=== PATIENT | male | born 1945 | race Caucasian/White ===

== ENCOUNTER 2016-08-14 05:46 | Emergency (ER) | payer OTHER, MEDICARE ==
[2016-08-14 05:56] VITALS: BP 153/114
--- NOTE | 2016-08-14 06:21 | EDM.PDOC ---
ED HPI GENERAL MEDICAL PROBLEM - General Chief Complaint: ENT Problem Stated Complaint: NOSE BLEED Time Seen by Provider: 08/14/16 05:58 Source of Information: Reports: Patient History Limitations: Reports: No Limitations - History of Present Illness INITIAL COMMENTS - FREE TEXT/NARRATIVE: This is a 71-year-old male. Onset of right nasal passage bleed approximately 5:30 AM. It has not stopped bleeding and he comes to the ER for evaluation. The patient does take Coumadin for history of atrial fibrillation. He denies any other acute symptoms. He has had a nosebleed some years ago but nothing recent. He denies any recent illnesses no colds no cough no fever no chills. He has been holding pressure on his nose but it is failed to stop the nasal bleed. - Related Data Allergies Allergy/AdvReac Type Severity Reaction Status Date / Time Penicillins Allergy Fever Verified 08/14/16 05:56 Home Meds: Home Meds Aspirin 81 mg PO DAILY 12/03/15 [History] Digoxin 0.25 mg PO DAILY 12/03/15 [History] Metoprolol Tartrate [Lopressor] 100 mg PO BID 12/03/15 [History] Warfarin [Coumadin] 5 mg PO DAILY 12/03/15 [History] Albuterol [Proair HFA] 1 puff INH Q4HR PRN 12/10/15 [History] Tiotropium [Spiriva Handihaler] 1 puff INH BID 12/10/15 [History] Past Medical History HEENT History: Reports: Epistaxis Cardiovascular History: Reports: Afib, Hypertension Respiratory History: Reports: Asthma, COPD Musculoskeletal History: Reports: Other (See Below) Other Musculoskeletal History: leg cramps - Past Surgical History HEENT Surgical History: Reports: Eye Surgery Social & Family History - Tobacco Use Smoking Status *Q: Never Smoker Second Hand Smoke Exposure: No - Caffeine Use Caffeine Use: Reports: None - Recreational Drug Use Recreational Drug Use: No ED ROS ENT - Review of Systems Review Of Systems: See Below Constitutional: Denies: Fever, Chills HEENT: Reports: Other (As per history of present illness) Respiratory: Reports: No Symptoms Cardiovascular: Reports: Other (History as history of present illness) Endocrine: Reports: No Symptoms GI/Abdominal: Reports: No Symptoms : Reports: No Symptoms Musculoskeletal: Reports: No Symptoms Skin: Reports: No Symptoms Neurological: Reports: No Symptoms Psychiatric: Reports: No Symptoms Hematologic/Lymphatic: Reports: Other (As per history of present illness) ED EXAM, ENT - Physical Exam Exam: See Below Exam Limited By: No Limitations General Appearance: Alert, WD/WN, No Apparent Distress Eye Exam: Bilateral Eye: Normal Inspection Ears: Normal External Exam Nose: Other (There is a mild active bleed in the right nasal passage, there is old blood in the left nasal passage) Mouth/Throat: Other (He has old blood on his tongue and his mouth but I do not see any posterior nasal bleeding) Head: Normocephalic Neck: Supple Respiratory/Chest: No Respiratory Distress, Lungs Clear, Normal Breath Sounds Cardiovascular: Regular Rate, Rhythm, No Murmur GI/Abdominal: Soft Back: Full Range of Motion Extremities: Normal Inspection, Normal Range of Motion Neurological: Alert, Oriented Psychiatric: Anxious Skin: Warm, Dry ED ENT PROCEDURES - Epistaxis Procedure Indication: Epistaxis Recent anticoagulants/antiplatlets: Yes Uncontrolled HTN: No Recent septal/nasal surgery: No Site of bleeding: Right Nare Topical Meds: Topical Cocaine Ice pack to area: No Anterior Packing: Other (Rhino Rocket with a posterior balloon was placed in the right Nare) Complications: No (Patient tolerated the procedure well) Course - Vital Signs Last Recorded V/S: Last Vital Signs Temp 97.6 F 08/14/16 05:52 Pulse 81 08/14/16 05:52 Resp 18 08/14/16 05:52 BP 153/114 H 08/14/16 05:52 Pulse Ox 90 L 08/14/16 05:52 - Orders/Labs/Meds Labs: Laboratory Tests 08/14/16 Range/Units 06:23 PT 22.2 H (8.0-13.0) SECONDS INR 1.95 Meds: Medications Discontinued Medications Generic Name Dose Route Start Last Admin Trade Name Freq PRN Reason Stop Dose Admin Cocaine HCl Confirm 08/14/16 06:04 Cocaine Hcl Administered 08/14/16 06:05 Dose 4 ml .ROUTE .STK-MED ONE Departure - Departure Time of Disposition: 06:57 Disposition: Home, Self-Care 01 Condition: Good Clinical Impression: Epistaxis, Subtherapeutic international normalized ratio (INR) - Discharge Information Forms: ED Department Discharge Additional Instructions: Continue with the Rhino Rocket, do not blow your nose to not sneeze through your nose, follow-up with your family doctor or the walk-in clinic or the ER for removal of the Rhino Rocket Tuesday morning, continue with your Coumadin, if there's complications with the Rhino Rocket with the beginning of or continued nasal bleeding return to the ER immediately, if the Rhino Rocket falls out and there is no nasal bleeding follow-up with your doctor on Tuesday
== END 2016-08-14 07:09 | disposition home or self-care (01) ==
LOC: JD.ED 05:46
DX: R04.0 Epistaxis (principal); R79.1 Abnormal coagulation profile; I48.91 Unspecified atrial fibrillation; I10 Essential (primary) hypertension; J45.909 Unspecified asthma, uncomplicated; Z88.0 Allergy status to penicillin; Z79.82 Long term (current) use of aspirin; Z79.01 Long term (current) use of anticoagulants; R06.02 Shortness of breath
CPT/HCPCS: 30903; 30905; 36415; 85610; 99282; 99282-25; 99283-25; 99284

== ENCOUNTER 2016-08-14 23:22 | Emergency (ER) | payer OTHER, MEDICARE ==
[2016-08-14 23:31] VITALS: BP 165/85
--- NOTE | 2016-08-15 00:10 | EDM.PDOC ---
ED HPI GENERAL MEDICAL PROBLEM - General Chief Complaint: Respiratory Problem Stated Complaint: SOB Time Seen by Provider: 08/14/16 23:31 Source of Information: Reports: Patient History Limitations: Reports: No Limitations - History of Present Illness INITIAL COMMENTS - FREE TEXT/NARRATIVE: This is a 71-year-old male. He was seen here yesterday evening for a nasal bleed that required a Rhino Rocket with posterior packing. He has had no further epistaxis with a packing but now he states he feels like he is short of breath. He can't seem to breathe through the left side of his nose and when he tried to sleep tonight the shortness of breath seemed to get worse. He comes back to the ER. He thinks the Rhino Rocket is causing his shortness of breath. He has no history of congestive heart failure even though he has a history of atrial fibrillation. He denies any fever or chills denies any other acute symptoms. - Related Data Allergies Allergy/AdvReac Type Severity Reaction Status Date / Time Penicillins Allergy Fever Verified 08/14/16 23:31 Home Meds: Home Meds Aspirin 81 mg PO DAILY 12/03/15 [History] Digoxin 0.25 mg PO DAILY 12/03/15 [History] Metoprolol Tartrate [Lopressor] 100 mg PO BID 12/03/15 [History] Warfarin [Coumadin] 5 mg PO DAILY 12/03/15 [History] Albuterol [Proair HFA] 1 puff INH Q4HR PRN 12/10/15 [History] Tiotropium [Spiriva Handihaler] 1 puff INH BID 12/10/15 [History] Past Medical History HEENT History: Reports: Epistaxis Cardiovascular History: Reports: Afib, Hypertension Respiratory History: Reports: Asthma, COPD Musculoskeletal History: Reports: Other (See Below) Other Musculoskeletal History: leg cramps - Past Surgical History HEENT Surgical History: Reports: Eye Surgery Social & Family History - Tobacco Use Smoking Status *Q: Never Smoker Second Hand Smoke Exposure: No - Caffeine Use Caffeine Use: Reports: None - Recreational Drug Use Recreational Drug Use: No ED ROS GENERAL - Review of Systems Review Of Systems: See Below Constitutional: Denies: Fever, Chills HEENT: Reports: Other (As per history of present illness) Respiratory: Reports: Shortness of Breath Cardiovascular: Denies: Chest Pain Endocrine: Reports: No Symptoms GI/Abdominal: Denies: Abdominal Pain, Diarrhea, Nausea, Vomiting : Reports: No Symptoms Musculoskeletal: Reports: No Symptoms Skin: Reports: No Symptoms Neurological: Reports: No Symptoms Psychiatric: Reports: No Symptoms Hematologic/Lymphatic: Reports: No Symptoms ED EXAM, GENERAL - Physical Exam Exam: See Below Exam Limited By: No Limitations General Appearance: Alert, WD/WN, No Apparent Distress, Other (Patient does not appear to be short of breath, pulse ox on room air is 93-94%) Eye Exam: Bilateral Eye: Normal Inspection Ears: Normal External Exam Nose: Other (Rhino Rocket is in good placement the balloons are still filled there is no bleeding) Throat/Mouth: Normal Inspection, Other (There is no balloon in the back of his throat that can be seen to suggest an obstruction from the Rhino Rocket) Head: Normocephalic Neck: Supple Respiratory/Chest: No Respiratory Distress, Lungs Clear, Normal Breath Sounds Cardiovascular: No Murmur, Irregularly Irregular GI/Abdominal: Soft Back Exam: Full Range of Motion Extremities: Normal Inspection, Normal Range of Motion Neurological: Alert, Oriented Psychiatric: Normal Affect, Normal Mood Skin Exam: Warm, Dry Course - Vital Signs Last Recorded V/S: Last Vital Signs Temp 97.8 F 08/14/16 23:26 Pulse 58 L 08/14/16 23:26 Resp 16 08/14/16 23:26 BP 165/85 H 08/14/16 23:26 Pulse Ox 93 L 08/14/16 23:26 - Re-Assessments/Exams Free Text/Narrative Re-Assessment/Exam: 08/15/16 00:10 I deflated the balloon to the Rhino Rocket with very gentle jiggling I was able to slowly remove the Rhino Rocket from the right nasal passage, there was no active bleeding after worse just some slight drainage noted 08/15/16 00:35 He is doing okay he still having a little bit of staining of the wash cloth from drainage from his right nasal area but there've been no bleeding and no posterior pharynx bleeding. I gave him the option of staying here for a little longer so we can observe him or if he wants to go home and he wants to go home. He does know that if he starts bleeding again he is to come back and get it repacked. He denies any shortness of breath now. Departure - Departure Time of Disposition: 00:36 Disposition: Home, Self-Care 01 Condition: Fair Clinical Impression: Encounter for removal of nasal packing, Shortness of breath, Epistaxis - Discharge Information Referrals: Sergio Gibbons MD [Primary Care Provider] - Forms: ED Department Discharge Additional Instructions: Gentle dabbing of the nose for the next 24 hours, do not blow your nose or sneeze through your nose, if you start having increased bleeding like you did before you need to return to the ER over the weekend for repeat nasal packing, otherwise follow-up with your family doctor this week for recheck
== END 2016-08-15 00:45 | disposition home or self-care (01) ==
LOC: JD.ED 23:22
DX: Z48.00 Encounter for change or removal of nonsurgical wound dressing (principal); R06.02 Shortness of breath; R04.0 Epistaxis; I48.91 Unspecified atrial fibrillation; I10 Essential (primary) hypertension; J45.909 Unspecified asthma, uncomplicated; J44.9 Chronic obstructive pulmonary disease, unspecified; Z88.0 Allergy status to penicillin; Z79.82 Long term (current) use of aspirin; Z79.01 Long term (current) use of anticoagulants
CPT/HCPCS: 99282; 99284

== ENCOUNTER 2017-01-29 06:02 | Emergency (ER) | payer MEDICARE, OTHER ==
[2017-01-29 06:11] VITALS: BP 172/81
--- NOTE | 2017-01-29 06:42 | EDM.PDOC ---
<Graeme Vázquez - Last Filed: 01/29/17 09:36> ED HPI GENERAL MEDICAL PROBLEM - General Chief Complaint: Respiratory Problem Stated Complaint: SOB Time Seen by Provider: 01/29/17 06:15 - Related Data Allergies Allergy/AdvReac Type Severity Reaction Status Date / Time Penicillins Allergy Fever Verified 01/29/17 06:07 Home Meds: Home Meds Aspirin 81 mg PO DAILY 12/03/15 [History] Digoxin 0.25 mg PO DAILY 12/03/15 [History] Metoprolol Tartrate [Lopressor] 100 mg PO BID 12/03/15 [History] Warfarin [Coumadin] 5 mg PO DAILY 12/03/15 [History] Albuterol [Proair HFA] 1 puff INH Q4HR PRN 12/10/15 [History] Tiotropium [Spiriva Handihaler] 1 puff INH BID 12/10/15 [History] Course - Vital Signs Last Recorded V/S: Last Vital Signs Temp 36.4 C 01/29/17 06:07 Pulse 73 01/29/17 06:07 Resp 26 H 01/29/17 06:07 BP 172/81 H 01/29/17 06:07 Pulse Ox 92 L 01/29/17 06:07 - Orders/Labs/Meds Orders: Active Orders 24 hr Category Date Time Status EKG Documentation Completion [RC] STAT Care 01/29/17 06:35 Active CULTURE BLOOD [BC] Stat Lab 01/29/17 07:05 Received CULTURE BLOOD [BC] Stat Lab 01/29/17 07:15 Received Blood Culture x2 Reflex Set [OM.PC] Stat Oth 01/29/17 06:35 Ordered Labs: Laboratory Tests 01/29/17 01/29/17 01/29/17 Range/Units 06:10 06:10 06:10 WBC 13.10 H (4.23-9.07) K/mm3 RBC 5.21 (4.63-6.08) M/mm3 Hgb 15.9 (13.7-17.5) gm/L Hct 48.2 (40.1-51.0) % MCV 92.5 H (79.0-92.2) fl MCH 30.5 (25.7-32.2) pg MCHC 33.0 (32.2-35.5) g/dl RDW Std Deviation 46.3 H (35.1-43.9) fL Plt Count 164 (163-337) K/mm3 MPV 12.3 (9.4-12.3) fl Neutrophils % (Manual) 77 H (40-60) % Band Neutrophils % 5 (0-10) % Lymphocytes % (Manual) 12 L (20-40) % Atypical Lymphs % 0 % Monocytes % (Manual) 6 (2-10) % Eosinophils % (Manual) 0 L (0.8-7.0) % Basophils % (Manual) 0 L (0.2-1.2) Platelet Estimate Adequate RBC Morph Comment Normal PT 25.4 H (8.0-13.0) SECONDS INR 2.21 APTT 44 H (22-36) SECONDS D-Dimer, Quantitative 0.46 (0.19-0.59) mg/L Puncture Site ABG pH (7.35-7.45) ABG pCO2 (35.0-45.0) mmHg ABG pO2 (80.0-100.0) mmHg ABG HCO3 (22.0-26.0) meq/L ABG O2 Saturation (96.0-97.0) % ABG Base Excess (-2-2.0) Radames Test A-a Gradient mmHg O2 Delivery Device FiO2 (21.00-100.00) % Sodium 134 L (136-145) mEq/L Potassium 4.5 (3.5-5.1) mEq/L Chloride 100 (98-107) mEq/L Carbon Dioxide 25 (21-32) mEq/L Anion Gap 13.5 (5-15) BUN 17 (7-18) mg/dL Creatinine 1.2 (0.7-1.3) mg/dL Est Cr Clr Drug Dosing 57.45 mL/min Estimated GFR (MDRD) 60 (>60) mL/min BUN/Creatinine Ratio 14.2 (14-18) Glucose 110 (83-115) mg/dL Lactic Acid (0.4-2.0) mmol/L Calcium 8.2 L (8.5-10.1) mg/dL Total Bilirubin 0.9 (0.2-1.0) mg/dL AST 28 (15-37) U/L ALT 26 (16-63) U/L Alkaline Phosphatase 104 (46-116) U/L Troponin I 0.018 (0.00-0.056) ng/mL NT-Pro-B Natriuret Pep 1208 H (0-125) pg/mL Total Protein 7.4 (6.4-8.2) g/dl Albumin 3.4 (3.4-5.0) g/dl Globulin 4.0 gm/dL Albumin/Globulin Ratio 0.9 L (1-2) Digoxin (0.9-2.0) ng/mL 01/29/17 01/29/17 01/29/17 Range/Units 06:10 06:45 07:05 WBC (4.23-9.07) K/mm3 RBC (4.63-6.08) M/mm3 Hgb (13.7-17.5) gm/L Hct (40.1-51.0) % MCV (79.0-92.2) fl MCH (25.7-32.2) pg MCHC (32.2-35.5) g/dl RDW Std Deviation (35.1-43.9) fL Plt Count (163-337) K/mm3 MPV (9.4-12.3) fl Neutrophils % (Manual) (40-60) % Band Neutrophils % (0-10) % Lymphocytes % (Manual) (20-40) % Atypical Lymphs % % Monocytes % (Manual) (2-10) % Eosinophils % (Manual) (0.8-7.0) % Basophils % (Manual) (0.2-1.2) Platelet Estimate RBC Morph Comment PT (8.0-13.0) SECONDS INR APTT (22-36) SECONDS D-Dimer, Quantitative (0.19-0.59) mg/L Puncture Site Rt radial ABG pH 7.39 (7.35-7.45) ABG pCO2 39.4 (35.0-45.0) mmHg ABG pO2 59.0 L (80.0-100.0) mmHg ABG HCO3 23.1 (22.0-26.0) meq/L ABG O2 Saturation 90.9 L (96.0-97.0) % ABG Base Excess -1.2 (-2-2.0) Radames Test Positive A-a Gradient 26 mmHg O2 Delivery Device Room air FiO2 21.00 (21.00-100.00) % Sodium (136-145) mEq/L Potassium (3.5-5.1) mEq/L Chloride (98-107) mEq/L Carbon Dioxide (21-32) mEq/L Anion Gap (5-15) BUN (7-18) mg/dL Creatinine (0.7-1.3) mg/dL Est Cr Clr Drug Dosing mL/min Estimated GFR (MDRD) (>60) mL/min BUN/Creatinine Ratio (14-18) Glucose (83-115) mg/dL Lactic Acid 1.2 (0.4-2.0) mmol/L Calcium (8.5-10.1) mg/dL Total Bilirubin (0.2-1.0) mg/dL AST (15-37) U/L ALT (16-63) U/L Alkaline Phosphatase (46-116) U/L Troponin I (0.00-0.056) ng/mL NT-Pro-B Natriuret Pep (0-125) pg/mL Total Protein (6.4-8.2) g/dl Albumin (3.4-5.0) g/dl Globulin gm/dL Albumin/Globulin Ratio (1-2) Digoxin 0.7 L (0.9-2.0) ng/mL Meds: Medications Discontinued Medications Generic Name Dose Route Start Last Admin Trade Name Margarita PRN Reason Stop Dose Admin Furosemide 40 mg 01/29/17 07:41 01/29/17 07:54 Lasix IVPUSH 01/29/17 07:42 40 mg NOW ONE Administration - Re-Assessments/Exams Free Text/Narrative Re-Assessment/Exam: 01/29/17 08:01 Repeat examination: Heart: Irregularly irregular no murmur lungs: Clear slightly diminished breath sounds no wheezes or rhonchi few basilar crackles. He has left 1-2+ pitting edema less so on the right. Chest x-ray reviewed he's got a hint of vascular congestion being pro BNP comes back at 1200 the patient does use Lasix at home however is not on his med list and he is not certain of the dose we will give him 40 mg IV at this time his potassium was 4.5 dig level pending. 01/29/17 09:36 Patient is doing better after the Lasix he's had a good diuretic response. With further discussion with the patient it sounds like he may have some problems gasping for air and getting good quality sleep he has a history of sleep apnea however hasn't been able to tolerate his machine it sounds like he is possibly on a BiPAP unit. I have encouraged him to work with this CPAP or BiPAP. Discuss the situation with his regular physician go see a sleep specialist if needed this will be beneficial to his heart failure atrial fibrillation hypertension and underlying lung disease as well as decrease his overall risk of stroke. Departure - Departure Time of Disposition: 09:40 Disposition: Home, Self-Care 01 Clinical Impression: Shortness of breath - Discharge Information Instructions: Shortness of Breath, [id number] Referrals: Sergio Gibbons MD [Primary Care Provider] - Forms: ED Department Discharge Additional Instructions: Return the emergency room with any questions problems worsening symptoms. For the next 3 days take Lasix 20 mg every morning starting tomorrow. Follow-up with your regular physician this next week. Discuss how things are going. Also discuss treatment for your sleep apnea and how to make this work. See a sleep specialist if you need to. With worsening fluid overload discuss if checking a heart ultrasound might be of benefit. - My Orders Last 24 Hours: My Active Orders 01/29/17 06:35 EKG Documentation Completion [RC] STAT Blood Culture x2 Reflex Set [OM.PC] Stat 01/29/17 07:05 CULTURE BLOOD [BC] Stat 01/29/17 07:15 CULTURE BLOOD [BC] Stat - Assessment/Plan Last 24 Hours: My Active Orders 01/29/17 06:35 EKG Documentation Completion [RC] STAT Blood Culture x2 Reflex Set [OM.PC] Stat 01/29/17 07:05 CULTURE BLOOD [BC] Stat 01/29/17 07:15 CULTURE BLOOD [BC] Stat <Guanako Devlin - Last Filed: 01/29/17 17:33> ED HPI GENERAL MEDICAL PROBLEM - General Source of Information: Reports: Patient, Family (), RN Notes Reviewed History Limitations: Reports: No Limitations - History of Present Illness INITIAL COMMENTS - FREE TEXT/NARRATIVE: The patient states that he developed both shortness of breath at rest and dyspnea with minimal exertion yesterday, 01/28/2017. He has had a dry cough. He states that he has been wheezing. He denies nasal or sinus congestion. No recent fever. No recent chest pain or palpitations. He states that he used his albuterol MDI 3-4 times yesterday, and that he took his Spiriva this morning. The patient has been diagnosed with COPD. He states that he had similar symptoms a few years ago, but does not recall the diagnosis. The patient states that he has chronic lower extremity edema, for which she takes a diuretic. He also has a history of chronic atrial fibrillation, for which she is on Coumadin. The patient's PCP is Dr. Gibbons. Past Medical History HEENT History: Reports: Epistaxis Cardiovascular History: Reports: Afib (chronic), Hypertension Respiratory History: Reports: COPD, Sleep Apnea Endocrine/Metabolic History: Reports: Obesity/BMI 30+ - Past Surgical History HEENT Surgical History: Reports: Cataract Surgery Social & Family History - Tobacco Use Smoking Status *Q: Former Smoker Years of Tobacco use: 53 Packs/Tins Daily: 1 Month Tobacco Last Used: Quit 2010 Second Hand Smoke Exposure: No - Caffeine Use Caffeine Use: Reports: Coffee - Alcohol Use Alcohol Use History: No - Recreational Drug Use Recreational Drug Use: No - Living Situation & Occupation Living situation: Reports: , with Spouse Occupation: Retired ED ROS GENERAL - Review of Systems Review Of Systems: See Below Constitutional: Reports: No Symptoms HEENT: Reports: No Symptoms Respiratory: Reports: No Symptoms Cardiovascular: Reports: No Symptoms Endocrine: Reports: No Symptoms GI/Abdominal: Reports: No Symptoms : Reports: No Symptoms Musculoskeletal: Reports: No Symptoms Skin: Reports: No Symptoms Neurological: Reports: No Symptoms Psychiatric: Reports: No Symptoms Hematologic/Lymphatic: Reports: No Symptoms Immunologic: Reports: No Symptoms ED EXAM, GENERAL - Physical Exam Exam: See Below Exam Limited By: No Limitations General Appearance: Alert, WD/WN, No Apparent Distress, Other (The patient was able to walk into the ED on his own, however, he needed to rest a moment to recover from dyspnea after minimal activity, such as sitting up.) Eye Exam: Bilateral Eye: Normal Inspection Ears: Normal External Exam, Normal Canal, Normal TMs, Hearing Loss Nose: Normal Inspection, Normal Mucosa, No Blood. No: Nasal Swelling Throat/Mouth: Normal Inspection, Normal Lips, Normal Teeth, Normal Gums, Normal Oropharynx, Normal Voice, No Airway Compromise Head: Atraumatic, Normocephalic Neck: Normal Inspection, Full Range of Motion. No: Lymphadenopathy (L), Lymphadenopathy (R) Respiratory/Chest: No Respiratory Distress, Lungs Clear, Normal Breath Sounds, No Accessory Muscle Use, Chest Non-Tender, Other (Good air movement). No: Decreased Breath Sounds, Crackles, Rhonchi, Wheezing, Prolonged Expiration Cardiovascular: Normal Peripheral Pulses, No Gallop, No JVD, No Murmur, No Rub, Irregularly Irregular Peripheral Pulses: 4+: Radial (L), Radial (R) GI/Abdominal: Normal Bowel Sounds, Soft, Non-Tender, No Organomegaly, No Distention, No Abnormal Bruit, No Mass, Other (Obese) (Male) Exam: Deferred Rectal (Males) Exam: Deferred Back Exam: Normal Inspection, Full Range of Motion, NT Extremities: Normal Inspection, Normal Range of Motion, Normal Capillary Refill , Other (1-2+ pitting pretibial edema, worse on the left than the right) Neurological: Alert, Oriented, Normal Cognition, No Motor/Sensory Deficits Psychiatric: Normal Affect Skin Exam: Warm, Dry, Intact, Normal Color, No Rash EKG INTERPRETATION EKG Date: 01/29/17 Time: 06:51 Rhythm: A-Fib Rate (Beats/Min): 86 [place]: Normal P-Wave: Absent QRS: Normal ST-T: Normal QT: Normal Comparison: NA - No Prior EKG Course - Orders/Labs/Meds Labs: Laboratory Tests 01/29/17 01/29/17 01/29/17 Range/Units 06:10 06:10 06:10 WBC 13.10 H (4.23-9.07) K/mm3 RBC 5.21 (4.63-6.08) M/mm3 Hgb 15.9 (13.7-17.5) gm/L Hct 48.2 (40.1-51.0) % MCV 92.5 H (79.0-92.2) fl MCH 30.5 (25.7-32.2) pg MCHC 33.0 (32.2-35.5) g/dl RDW Std Deviation 46.3 H (35.1-43.9) fL Plt Count 164 (163-337) K/mm3 MPV 12.3 (9.4-12.3) fl Neutrophils % (Manual) 77 H (40-60) % Band Neutrophils % 5 (0-10) % Lymphocytes % (Manual) 12 L (20-40) % Atypical Lymphs % 0 % Monocytes % (Manual) 6 (2-10) % Eosinophils % (Manual) 0 L (0.8-7.0) % Basophils % (Manual) 0 L (0.2-1.2) Platelet Estimate Adequate RBC Morph Comment Normal PT 25.4 H (8.0-13.0) SECONDS INR 2.21 APTT 44 H (22-36) SECONDS D-Dimer, Quantitative 0.46 (0.19-0.59) mg/L Puncture Site ABG pH (7.35-7.45) ABG pCO2 (35.0-45.0) mmHg ABG pO2 (80.0-100.0) mmHg ABG HCO3 (22.0-26.0) meq/L ABG O2 Saturation (96.0-97.0) % ABG Base Excess (-2-2.0) Radames Test A-a Gradient mmHg O2 Delivery Device FiO2 (21.00-100.00) % Sodium 134 L (136-145) mEq/L Potassium 4.5 (3.5-5.1) mEq/L Chloride 100 (98-107) mEq/L Carbon Dioxide 25 (21-32) mEq/L Anion Gap 13.5 (5-15) BUN 17 (7-18) mg/dL Creatinine 1.2 (0.7-1.3) mg/dL Est Cr Clr Drug Dosing 57.45 mL/min Estimated GFR (MDRD) 60 (>60) mL/min BUN/Creatinine Ratio 14.2 (14-18) Glucose 110 (83-115) mg/dL Lactic Acid (0.4-2.0) mmol/L Calcium 8.2 L (8.5-10.1) mg/dL Total Bilirubin 0.9 (0.2-1.0) mg/dL AST 28 (15-37) U/L ALT 26 (16-63) U/L Alkaline Phosphatase 104 (46-116) U/L Troponin I 0.018 (0.00-0.056) ng/mL NT-Pro-B Natriuret Pep 1208 H (0-125) pg/mL Total Protein 7.4 (6.4-8.2) g/dl Albumin 3.4 (3.4-5.0) g/dl Globulin 4.0 gm/dL Albumin/Globulin Ratio 0.9 L (1-2) Digoxin (0.9-2.0) ng/mL 01/29/17 01/29/17 01/29/17 Range/Units 06:10 06:45 07:05 WBC (4.23-9.07) K/mm3 RBC (4.63-6.08) M/mm3 Hgb (13.7-17.5) gm/L Hct (40.1-51.0) % MCV (79.0-92.2) fl MCH (25.7-32.2) pg MCHC (32.2-35.5) g/dl RDW Std Deviation (35.1-43.9) fL Plt Count (163-337) K/mm3 MPV (9.4-12.3) fl Neutrophils % (Manual) (40-60) % Band Neutrophils % (0-10) % Lymphocytes % (Manual) (20-40) % Atypical Lymphs % % Monocytes % (Manual) (2-10) % Eosinophils % (Manual) (0.8-7.0) % Basophils % (Manual) (0.2-1.2) Platelet Estimate RBC Morph Comment PT (8.0-13.0) SECONDS INR APTT (22-36) SECONDS D-Dimer, Quantitative (0.19-0.59) mg/L Puncture Site Rt radial ABG pH 7.39 (7.35-7.45) ABG pCO2 39.4 (35.0-45.0) mmHg ABG pO2 59.0 L (80.0-100.0) mmHg ABG HCO3 23.1 (22.0-26.0) meq/L ABG O2 Saturation 90.9 L (96.0-97.0) % ABG Base Excess -1.2 (-2-2.0) Radames Test Positive A-a Gradient 26 mmHg O2 Delivery Device Room air FiO2 21.00 (21.00-100.00) % Sodium (136-145) mEq/L Potassium (3.5-5.1) mEq/L Chloride (98-107) mEq/L Carbon Dioxide (21-32) mEq/L Anion Gap (5-15) BUN (7-18) mg/dL Creatinine (0.7-1.3) mg/dL Est Cr Clr Drug Dosing mL/min Estimated GFR (MDRD) (>60) mL/min BUN/Creatinine Ratio (14-18) Glucose (83-115) mg/dL Lactic Acid 1.2 (0.4-2.0) mmol/L Calcium (8.5-10.1) mg/dL Total Bilirubin (0.2-1.0) mg/dL AST (15-37) U/L ALT (16-63) U/L Alkaline Phosphatase (46-116) U/L Troponin I (0.00-0.056) ng/mL NT-Pro-B Natriuret Pep (0-125) pg/mL Total Protein (6.4-8.2) g/dl Albumin (3.4-5.0) g/dl Globulin gm/dL Albumin/Globulin Ratio (1-2) Digoxin 0.7 L (0.9-2.0) ng/mL Meds: Medications Discontinued Medications Generic Name Dose Route Start Last Admin Trade Name Tariqq PRN Reason Stop Dose Admin Furosemide 40 mg 01/29/17 07:41 01/29/17 07:54 Lasix IVPUSH 01/29/17 07:42 40 mg NOW ONE Administration - Re-Assessments/Exams Free Text/Narrative Re-Assessment/Exam: 01/29/17 07:[address] Vázquez, and care of the patient turned over to him at this time, for change of shift.
[2017-01-29] MEDS ORDERED: Furosemide 40 MG/4 ML VIAL IVPUSH ONE (07:41)
--- NOTE | 2017-01-29 16:07 | CR ---
Chest: Two views of the chest were obtained. Comparison: No prior chest x-ray. Heart is enlarged. Upper mediastinum is within normal limits. Mild pulmonary vascular congestion is seen. Lungs otherwise are clear. Bony structures show degenerative spurring within the spine with mild kyphosis. Impression: 1. Cardiomegaly with mild pulmonary vascular congestion. 2. Other incidental findings. Diagnostic code #3
== END 2017-01-29 09:55 | disposition home or self-care (01) ==
LOC: JD.ED 06:02
DX: R06.02 Shortness of breath (principal); I10 Essential (primary) hypertension; Z87.891 Personal history of nicotine dependence; Z88.0 Allergy status to penicillin; Z79.82 Long term (current) use of aspirin; Z79.01 Long term (current) use of anticoagulants; Z79.899 Other long term (current) drug therapy
CPT/HCPCS: 36415; 36600; 71020; 80053; 80162; 82803; 83605; 83880; 84484; 85025; 85379; 85610; 85730; 87040; 93005; 96374; 99285; J1940; 93010; 99284

== ENCOUNTER 2018-10-15 18:08 | Emergency (ER) | payer MEDICARE, BC ==
[2018-10-15 18:32] VITALS: BP 178/74
[2018-10-15] MEDS ORDERED: Oxymetazoline 0.05% Nasal Spray 30 ML Bottle NAS ONE (19:20)
--- NOTE | 2018-10-15 19:28 | EDM.PDOC ---
ED HPI GENERAL MEDICAL PROBLEM - General Chief Complaint: ENT Problem Stated Complaint: NOSE BLEED Time Seen by Provider: 10/15/18 19:19 Source of Information: Reports: Patient, Family (spouse) History Limitations: Reports: No Limitations - History of Present Illness INITIAL COMMENTS - FREE TEXT/NARRATIVE: 73-year-old male presents to the ED with a fairly active nose bleed since 1630 hrs. today. States he awoke from a nap with active bleeding from his right naris. No known nasal trauma. No recent allergy issues or cough or cold symptoms. Patient is on aspirin and Coumadin due to chronic atrial fibrillation. Last Coumadin check was a month ago due for tomorrow. No changes to his Coumadin dosage made in the last month. Blood was coming out the other or left side of his nares as well. Blood swallowed. With direct pressure he did get it stopped for a period of time but then he sneezed and started bleeding again. Onset: Today Onset Date: 10/15/18 Onset Time: 16:30 Duration: Hour(s): Location: Reports: Face (Right-sided nasal bleeding. Persistent for 2 hours) Quality: Reports: Other Severity: Moderate (Right-sided nasal hemorrhage) Improves with: Reports: Other (Improves transiently with firm compression.) Worsens with: Reports: Other Context: Reports: Other. 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 (see below) Other Treatments THERMITE BOMB LOADER: pressure to right nares - Related Data Allergies Allergy/AdvReac Type Severity Reaction Status Date / Time Penicillins Allergy Fever Verified 01/29/17 06:07 Home Meds: Home Meds Aspirin 81 mg PO DAILY 12/03/15 [History] Digoxin 0.25 mg PO DAILY 12/03/15 [History] Metoprolol Tartrate [Lopressor] 100 mg PO BID 12/03/15 [History] Warfarin [Coumadin] 5 mg PO SUMOTUTHFRSA 12/03/15 [History] Albuterol [Proair HFA] 1 puff INH Q4HR PRN 12/10/15 [History] Tiotropium [Spiriva Handihaler] 1 puff INH BID 12/10/15 [History] Fluticasone/Vilanterol [Breo Ellipta 100-25 MCG Inhalation Kit] 1 puff INH DAILY 10/15/18 [History] Spironolactone [Aldactone] 25 mg PO BID #20 tablet 10/15/18 [Rx] Warfarin Sodium [Coumadin] 7.5 mg PO WE 10/15/18 [History] Past Medical History HEENT History: Reports: Epistaxis Cardiovascular History: Reports: Afib (chronic), Hypertension Respiratory History: Reports: COPD, Sleep Apnea Musculoskeletal History: Reports: Other (See Below) Other Musculoskeletal History: leg cramps Endocrine/Metabolic History: Reports: Obesity/BMI 30+ - Past Surgical History HEENT Surgical History: Reports: Cataract Surgery Social & Family History - Caffeine Use Caffeine Use: Reports: Coffee - Living Situation & Occupation Living situation: Reports: , with Spouse Occupation: Retired ED ROS ENT - Review of Systems Review Of Systems: See Below Constitutional: Denies: Fever, Chills, Malaise, Weakness, Fatigue HEENT: Reports: Nosebleed (Right side since 1630 hrs. today.) Respiratory: Reports: Shortness of Breath (O2 sats only 91% here with respiratory of 24/m.) Cardiovascular: Reports: Blood Pressure Problem, Dyspnea on Exertion ( Occasionally.). Denies: Chest Pain, Claudication, Lightheadedness, Orthopnea ( Chronic hypertension on medication for this. Current blood pressure is [id number] [phone].) Endocrine: Reports: Fatigue GI/Abdominal: Reports: No Symptoms : Reports: Frequency Musculoskeletal: Reports: Joint Pain Skin: Reports: Bruising (uses easily as he is on Coumadin and aspirin daily. For atrial fibrillation.) Neurological: Reports: No Symptoms Psychiatric: Reports: No Symptoms Hematologic/Lymphatic: Reports: No Symptoms Immunologic: Reports: No Symptoms ED EXAM, ENT - Physical Exam Exam: See Below Exam Limited By: No Limitations General Appearance: Alert, WD/WN, Anxious, Moderate Distress, Other (Concerned about having a Rhino Rocket pack as he did last time which causes severe pain and discomfort and he refuses this procedure today.) Eye Exam: Bilateral Eye: Normal Inspection Nose: Active Bleeding, Other (There is some blood in the left naris but it is coming from the right side. Examination shows a seat of active blood vessels from the anterior nasal septum on the right side) Mouth/Throat: Normal Inspection, Normal Gums, Normal Lips, Other Head: Atraumatic, Normocephalic (Some blood in the posterior oropharynx.) Neck: Normal Inspection, Supple, Non-Tender, Full Range of Motion Respiratory/Chest: Respiratory Distress, Decreased Breath Sounds (Mild tachypnea at rest 24/m. Patient has COPD chronically. Sats are 91% on room air.) Cardiovascular: Irregularly Irregular (Patient has chronic active fibrillation controlled at this time 72/m). No: Normal Peripheral Pulses ( Decreased breath sounds to the lower 25% of lung montoya.), Regular Rate, Rhythm GI/Abdominal: Soft, Non-Tender, No Organomegaly (Mildly obese.), No Abnormal Bruit, No Mass, Pelvis Stable, Other Neurological: Alert, Oriented, CN II-XII Intact, Normal Cognition Course - Vital Signs Last Recorded V/S: Last Vital Signs Temp 36.8 C 10/15/18 18:28 Pulse 70 10/15/18 18:28 Resp 24 H 10/15/18 18:28 BP 178/74 H 10/15/18 18:28 Pulse Ox 91 L 10/15/18 18:28 - Orders/Labs/Meds Orders: Active Orders 24 hr Category Date Time Status INR,PT,PROTHROMBIN TIME [COAG] Stat Lab 10/15/18 19:51 Received Labs: Laboratory Tests 10/15/18 10/15/18 10/15/18 Range/Units 19:51 19:51 19:51 Hgb 15.8 (13.7-17.5) gm/L Hct 48.1 (40.1-51.0) % Magnesium 2.3 (1.8-2.4) mg/dl NT-Pro-B Natriuret Pep 939 H (0-125) pg/mL Meds: Medications Discontinued Medications Generic Name Dose Route Start Last Admin Trade Name Freq PRN Reason Stop Dose Admin Cocaine HCl 4 ml 10/15/18 19:19 10/15/18 19:32 Cocaine Hcl TOP 10/15/18 19:20 4 ml ONETIME ONE Administration Oxymetazoline HCl 15 ml 10/15/18 19:20 10/15/18 19:31 Nasal Decongestant [place] PAM 10/15/18 19:21 15 ml ONETIME ONE Administration - Radiology Interpretation Free Text/Narrative:: 73-year-old male presents the ED with an acute onset of right sided nosebleed at 1430 hrs. today. He got stopped once but then sneezed and it's been bleeding ever since. Blood has come out through the left naris intermittently as well and he has swallowed some blood. Patient is chronically anticoagulate with Coumadin and aspirin for atrial fibrillation. He has a history of COPD and is currently showing sats of 91% on room air with tachypnea at 24/m. He is moderately anxious as well. Initial examination I could not pinpoint the source of bleeding although appears to be coming from the right anterior nasal septum. OB to pack the naris with half inch tube gauze soaked in cocaine and Afrin to get the bleeding to stop and then hopefully be able to apply silver nitrate to blood vessels on the surface. - Re-Assessments/Exams Free Text/Narrative Re-Assessment/Exam: 10/15/18 19:44: Right naris is packed with 1/2 inch tube gauze soaked in Afrin and cocaine topical. Anterior pack performed. Will wait 20 minutes for this to work and then review. 10/15/18 20:14 pack was removed and no bleeding was evident on the pack. The area of bleeding on the anterior nasal septum was identified and cauterized with silver nitrate in 3 separate areas. Labs are still pending as to his current PT/INR. I will review him in about 10 minutes time. PT/INR is pending. 10/15/18 20:42 Labs reveal hemoglobin of 15.8 and hematocrit of 48.1. Magnesium was 2.3. BNP was 939. 10/15/18 20:42 PT came back at 22.1 with an INR of 2.12. Patient is short of breath and showing some orthopnea at bedtime. Elevated BNP at 939 He's reluctant to go back on Lasix as he tried this in the past and got terrible leg cramps. I will place him on Aldactone 25 mg twice a day and have him follow-up in the clinic in 7 days time for repeat labs and serum potassium values. Departure - Departure Time of Disposition: 20:44 Disposition: Home, Self-Care 01 Condition: Fair Clinical Impression: Anterior epistaxis, Epistaxis Congestive heart failure Qualifiers: Heart failure type: unspecified Heart failure chronicity: chronic Qualified Code(s): I50.9 - Heart failure, unspecified - Discharge Information *PRESCRIPTION DRUG MONITORING PROGRAM REVIEWED*: Not Applicable *COPY OF PRESCRIPTION DRUG MONITORING REPORT IN PATIENT VIVIAN: Not Applicable Prescriptions: Spironolactone [Aldactone] 25 mg PO BID #20 tablet Referrals: Sergio Gibbons MD [Primary Care Provider] - Forms: ED Department Discharge Additional Instructions: Evaluation in the emergency room today in regards to development of a significant persistent nosebleed from the right side since about 1630 hrs. today. Irritable got it under control prior to evaluation the emergency room. You're treated with initial pack with topical cocaine and Afrin to cause the blood vessels to constrict and stop the bleeding. I could identify 2 areas on the anterior nasal septum on the right side that had been bleeding and these were cauterized with silver nitrate. No further bleeding was evident on reevaluation. Lab tests reveal you're PT was 22.1 and INR was 2.1 which is slightly low but at this time I would not change the values. The BNP which is a measurement of how well the heart is functioning is elevated at 939 with normal being less than 125. Fluid is accumulating in her lungs likely chronically and this is the reason you're short of breath at nighttime when you're lying down which we call orthopnea. He therefore requires some form of diuretic therapy and is suggesting try a short course of Aldactone 25 mg with breakfast and supper daily for the next week and follow-up in the clinic in about 8 days time for repeat lab tests on kidney function and serum potassium values as the medication can raise these. Of course return to the ED if any further bleeding from the right nose occurs. Ideally try not to blow her nose or irritate the nose in any fashion are formed for the next 2-3 days. Suggest purchasing some Polysporin ointment and placing this ointment into each side of the nose coating the nasal septum at bedtime for the next week which will hopefully allow the tissue to heal and prevent further bleeding. - My Orders Last 24 Hours: My Active Orders 10/15/18 19:51 INR,PT,PROTHROMBIN TIME [COAG] Stat - Assessment/Plan Last 24 Hours: My Active Orders 10/15/18 19:51 INR,PT,PROTHROMBIN TIME [COAG] Stat
== END 2018-10-15 20:58 | disposition home or self-care (01) ==
LOC: JD.ED 18:08
DX: R04.0 Epistaxis (principal); I50.9 Heart failure, unspecified; I10 Essential (primary) hypertension; J44.9 Chronic obstructive pulmonary disease, unspecified; E66.9 Obesity, unspecified; Z68.34 Body mass index [BMI] 34.0-34.9, adult; Z88.0 Allergy status to penicillin; Z79.82 Long term (current) use of aspirin; Z79.01 Long term (current) use of anticoagulants; Z79.899 Other long term (current) drug therapy
CPT/HCPCS: 30901; 36415; 80162; 83735; 83880; 84132; 85014; 85018; 85610; 99283; A9270

== ENCOUNTER 2018-10-16 10:18 | Emergency (ER) | payer MEDICARE, BC ==
[2018-10-16 10:25] VITALS: BP 160/80
--- NOTE | 2018-10-16 10:36 | EDM.PDOC ---
ED HPI GENERAL MEDICAL PROBLEM - General Chief Complaint: ENT Problem Stated Complaint: NOSE BLEED Time Seen by Provider: 10/16/18 10:22 Source of Information: Reports: Patient, Family (spouse) History Limitations: Reports: No Limitations - History of Present Illness INITIAL COMMENTS - FREE TEXT/NARRATIVE: 73-year-old male returns to the ED this morning with bleeding from the right naris 1 hour. He was seen in ED late last night by me with a right-sided nosebleed as well. He had initial packing performed with Afrin and cocaine topical which did bring the bleeding under control. Areas of the anterior septum on the right side were cauterized with silver nitrate in 3 spots. He states he did fine overnight. But this morning he blew his nose hard in the bleeding started again. The patient is on Coumadin and his PT INR last night was 22.1 with an INR of 2.12. He did take his aspirin this morning. On did run slightly out the left side of the naris. The way he can control the bleeding is by squeezing the nose closed. 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 (see below) (Only his usual meds.) - Related Data Allergies Allergy/AdvReac Type Severity Reaction Status Date / Time Penicillins Allergy Fever Verified 01/29/17 06:07 Home Meds: Home Meds Aspirin 81 mg PO DAILY 12/03/15 [History] Digoxin 0.25 mg PO DAILY 12/03/15 [History] Metoprolol Tartrate [Lopressor] 100 mg PO BID 12/03/15 [History] Warfarin [Coumadin] 5 mg PO SUMOTUTHFRSA 12/03/15 [History] Albuterol [Proair HFA] 1 puff INH Q4HR PRN 12/10/15 [History] Tiotropium [Spiriva Handihaler] 1 puff INH BID 12/10/15 [History] Fluticasone/Vilanterol [Breo Ellipta 100-25 MCG Inhalation Kit] 1 puff INH DAILY 10/15/18 [History] Spironolactone [Aldactone] 25 mg PO BID #20 tablet 10/15/18 [Rx] Warfarin Sodium [Coumadin] 7.5 mg PO WE 10/15/18 [History] Bacitracin/Polymyxin B Sulfate [Polysporin Ointment] 15 gm TP DAILY #1 tube [Rx] Past Medical History HEENT History: Reports: Epistaxis Cardiovascular History: Reports: Afib, Hypertension Respiratory History: Reports: COPD, Sleep Apnea Musculoskeletal History: Reports: Other (See Below) Other Musculoskeletal History: leg cramps Endocrine/Metabolic History: Reports: Obesity/BMI 30+ - Past Surgical History HEENT Surgical History: Reports: Cataract Surgery Social & Family History - Caffeine Use Caffeine Use: Reports: Coffee - Living Situation & Occupation Living situation: Reports: , with Spouse Occupation: Retired ED ROS ENT - Review of Systems Review Of Systems: See Below Constitutional: Denies: Fever, Chills, Malaise, Weakness, Fatigue, Decreased Appetite, Weight Loss HEENT: Reports: Glasses, Nosebleed (Right side some until last night.) Respiratory: Reports: Shortness of Breath, Wheezing, Cough (Orthopnea the last few days. Nonproductive has known COPD.), Other Cardiovascular: Reports: Blood Pressure Problem, Dyspnea on Exertion. Denies: Chest Pain, Claudication, Edema, Lightheadedness, Orthopnea Endocrine: Reports: No Symptoms (Chronically) GI/Abdominal: Reports: No Symptoms : Reports: Frequency, Other (Nocturia 2 or 3) Musculoskeletal: Reports: Neck Pain, Back Pain, Joint Pain Skin: Reports: Bruising (Occasional neck pain) Neurological: Reports: No Symptoms ( bruises easily as he is on Coumadin and aspirin) Psychiatric: Reports: No Symptoms ED EXAM, ENT - Physical Exam Exam: See Below Exam Limited By: No Limitations General Appearance: Alert, WD/WN, No Apparent Distress, Other (Vital signs this morning reveal temperature 37.1 with a pulse of 70 respiratory of 16 sats of 94 % on room air. BP is 160/80) Eye Exam: Bilateral Eye: Normal Inspection Nose: Active Bleeding (No clots are present.). No: Dried Blood Mouth/Throat: Other (Slight blood coating the posterior oropharynx.) ED ENT PROCEDURES - Epistaxis Procedure Indication: Epistaxis Recent anticoagulants/antiplatlets: Yes Uncontrolled HTN: No Recent septal/nasal surgery: No Site of bleeding: Right Nare Clearing of clots: Patient Blew Nose Ice pack to area: No Chemical cautery: Silver Nitrate Topical Course - Vital Signs Last Recorded V/S: Last Vital Signs Temp 37.1 C 10/16/18 10:23 Pulse 70 10/16/18 10:23 Resp 16 10/16/18 10:23 BP 160/80 H 10/16/18 10:23 Pulse Ox 94 L 10/16/18 10:23 - Radiology Interpretation Free Text/Narrative:: 73-year-old male presents once again to the ED with a very active right-sided nosebleeds for the last hour. He was seen through the ED last night for similar occurrence with bleeding for over 3 hours before being seen in the ED. Initial bleeding was stopped with cocaine and topical Afrin packing. The area was then cauterized on the right anterior nasal septal silver nitrate but it was difficult to appreciate the exact source of bleeding since the bleeding and stop so well. He states he did fine overnight but his nose hard this morning and bleeding once again started as he disrupted the clock. On examination mild active bleeding from the right anterior nasal septum once again appreciated. This area was cauterized once again with silver nitrate. I will review him in 10 minutes or so. As I discussed PT and PT INR were done last night. - Re-Assessments/Exams Free Text/Narrative Re-Assessment/Exam: 10/16/18 11:12 evaluation in the emergency room today in regards to recurrence of right-sided nosebleed after blowing nose this morning. Examination reveals bleeding from similar area right anterior nasal septum that was identified last night and cauterized. Areas were cauterized again today as there was no evidence of silver nitrate on the tissues this morning. Bleeding appeared to come under control. Coated with bacitracin ointment prior to discharge. Suggest use of Polysporin ointment on a Q-tip applied to the nasal septum every night at bedtime for the next week. Return to the ED if further bleeding occurs. Departure - Departure Time of Disposition: 11:09 Disposition: Home, Self-Care 01 Condition: Fair Clinical Impression: Epistaxis, recurrent - Discharge Information *PRESCRIPTION DRUG MONITORING PROGRAM REVIEWED*: Not Applicable *COPY OF PRESCRIPTION DRUG MONITORING REPORT IN PATIENT VIVIAN: Not Applicable Prescriptions: Bacitracin/Polymyxin B Sulfate [Polysporin Ointment] 15 gm TP DAILY #1 tube Referrals: Sergio Gibbons MD [Primary Care Provider] - Forms: ED Department Discharge Additional Instructions: Evaluation the emergency room this morning due to recurrence of nosebleed from the right anterior nasal septum. Areas were once again cauterized with silver nitrite to stop the bleeding which proved to be successful. Bacitracin ointment was placed on the nasal septum this morning. Suggest use Polysporin ointment every day at bedtime for the next week coating the nasal septum with the aid of a Q-tip. Of course return to the ED if further bleeding occurs. Again try not to blow the nose or pick at the nose etc. for at least 48 hours.
== END 2018-10-16 11:22 | disposition home or self-care (01) ==
LOC: JD.ED 10:18
DX: R04.0 Epistaxis (principal); I48.91 Unspecified atrial fibrillation; I10 Essential (primary) hypertension; J44.9 Chronic obstructive pulmonary disease, unspecified; Z88.0 Allergy status to penicillin; Z79.82 Long term (current) use of aspirin; Z79.899 Other long term (current) drug therapy; Z79.01 Long term (current) use of anticoagulants
CPT/HCPCS: 30901; 30905; 99281; 99283-25

== ENCOUNTER 2018-10-20 09:35 | Emergency (ER) | payer MEDICARE, BC ==
[2018-10-20 09:44] VITALS: BP 155/62
--- NOTE | 2018-10-20 10:19 | EDM.PDOC ---
ED HPI GENERAL MEDICAL PROBLEM - General Chief Complaint: ENT Problem Stated Complaint: NOSE BLEED Time Seen by Provider: 10/20/18 10:00 Source of Information: Reports: Patient, Family History Limitations: Reports: No Limitations - History of Present Illness INITIAL COMMENTS - FREE TEXT/NARRATIVE: 73-year-old male presents to the ED with acute right-sided epistaxis. This is a recurrent problem over the last week he's been here twice last weekend for similar problem. States in between he has been fine until he blew his nose hard this morning. He was able to get the bleeding stopped prior to coming into the ED. Last PT/INR was done 2 days ago and INR was 1.5. His dosage of Coumadin is thus been increased. He is on aspirin as well. No other complaints. Onset: Today Onset Date: 10/20/18 Onset Time: 09:15 Duration: Minutes: Location: Reports: Face (Right epistaxis.) Quality: Reports: Other Severity: Mild Improves with: Reports: None Worsens with: Reports: None Context: Reports: Other. Denies: Activity, Exercise, Lifting, Sick Contact Associated Symptoms: Reports: No Other Symptoms (His nose aggressively this morning.) Treatments [employer]PA[employer]ER: Reports: Other (see below) (None.) - Related Data Allergies Allergy/AdvReac Type Severity Reaction Status Date / Time Penicillins Allergy Fever Verified 10/20/18 09:41 Home Meds: Home Meds Aspirin 81 mg PO DAILY 12/03/15 [History] Digoxin 0.25 mg PO DAILY 12/03/15 [History] Metoprolol Tartrate [Lopressor] 100 mg PO BID 12/03/15 [History] Warfarin [Coumadin] 5 mg PO SUMOTUTHFRSA 12/03/15 [History] Albuterol [Proair HFA] 1 puff INH Q4HR PRN 12/10/15 [History] Tiotropium [Spiriva Handihaler] 1 puff INH BID 12/10/15 [History] Fluticasone/Vilanterol [Breo Ellipta 100-25 MCG Inhalation Kit] 1 puff INH DAILY 10/15/18 [History] Spironolactone [Aldactone] 25 mg PO BID #20 tablet 10/15/18 [Rx] Warfarin Sodium [Coumadin] 7.5 mg PO WE 10/15/18 [History] Bacitracin/Polymyxin B Sulfate [Polysporin Ointment] 15 gm TP DAILY #1 tube [Rx] Past Medical History HEENT History: Reports: Epistaxis Cardiovascular History: Reports: Afib, Hypertension Respiratory History: Reports: COPD, Sleep Apnea Musculoskeletal History: Reports: Other (See Below) Other Musculoskeletal History: leg cramps Endocrine/Metabolic History: Reports: Obesity/BMI 30+ - Past Surgical History HEENT Surgical History: Reports: Cataract Surgery Social & Family History - Tobacco Use Smoking Status *Q: Former Smoker Used Tobacco, but Quit: No - Caffeine Use Caffeine Use: Reports: Soda - Recreational Drug Use Recreational Drug Use: No - Living Situation & Occupation Living situation: Reports: , with Spouse Occupation: Retired ED ROS ENT - Review of Systems Review Of Systems: See Below Constitutional: Reports: No Symptoms HEENT: Reports: Nosebleed (Right-sided epistaxis.) Respiratory: Reports: No Symptoms, Cough (Chronic cough.) Cardiovascular: Reports: No Symptoms ( Has COPD.) Endocrine: Reports: No Symptoms GI/Abdominal: Reports: No Symptoms : Reports: No Symptoms Musculoskeletal: Reports: No Symptoms Skin: Reports: Bruising Neurological: Reports: No Symptoms (Bruises easily as he is on Coumadin and aspirin.) Psychiatric: Reports: No Symptoms Hematologic/Lymphatic: Reports: No Symptoms Immunologic: Reports: No Symptoms ED EXAM, ENT - Physical Exam Exam: See Below Exam Limited By: No Limitations General Appearance: Alert, WD/WN, No Apparent Distress Eye Exam: Bilateral Eye: Normal Inspection Nose: Active Bleeding (Very minimal active bleeding from the superior aspect of the anterior nasal septum .) Head: Atraumatic, Normocephalic Neck: Normal Inspection, Supple, Non-Tender, Full Range of Motion. No: Carotid Bruit, Lymphadenopathy (L), Lymphadenopathy (R) Respiratory/Chest: No Respiratory Distress, Lungs Clear, Normal Breath Sounds, No Accessory Muscle Use Cardiovascular: Normal Peripheral Pulses, Regular Rate, Rhythm, No Edema, No Gallop, No Murmur, No Rub GI/Abdominal: Normal Bowel Sounds Extremities: Normal Inspection, Normal Range of Motion, Non-Tender Neurological: Alert, Oriented, CN II-XII Intact, Normal Cognition Psychiatric: Normal Affect, Normal Mood Skin: Warm, Dry, Intact, Normal Color, No Rash ED ENT PROCEDURES - Epistaxis Procedure Indication: Epistaxis Recent anticoagulants/antiplatlets: Yes Uncontrolled HTN: No Recent septal/nasal surgery: No Site of bleeding: Right Nare, Anterior Ice pack to area: No Chemical cautery: Silver Nitrate Topical Course - Vital Signs Last Recorded V/S: Last Vital Signs Temp 36.6 C 10/20/18 09:43 Pulse 84 10/20/18 09:43 Resp 14 10/20/18 09:43 BP 155/62 H 10/20/18 09:43 Pulse Ox 90 L 10/20/18 09:43 - Radiology Interpretation Free Text/Narrative:: 73-year-old male presents to the ED for the third time this week with right- sided epistaxis. States he blew his nose hard and started having a right-sided nosebleed this morning. Patient was seen twice last weekend with recurrent right -sided nosebleeds. Patient is on Coumadin and aspirin and last PT/INR was x-ray subtherapeutic at 1.5. Since has been increased over the last 2 days. Trauma to the nose. On inspection there is an area of bleeding from the superior aspect of the anterior nasal septum on the right side. This area was cauterized with silver nitrate 2. Bleeding had pretty well stopped at the time of my initial assessment. - Re-Assessments/Exams Free Text/Narrative Re-Assessment/Exam: 10/20/18 10:20: No further bleeding identified. Patient be discharged to home after bacitracin ointment is applied in the ED. He will continue current treatment plan Polysporin ointment every night at bedtime. He has occurred about were head cauterized in the past. Previously cauterized mucosa appears back to normal. He reports he is breathing better already after 3 days of Aldactone use. Still has significant edema in both lower extremities however. Departure - Departure Time of Disposition: 10:19 Disposition: Home, Self-Care 01 Condition: Fair Clinical Impression: Recurrent epistaxis - Discharge Information *PRESCRIPTION DRUG MONITORING PROGRAM REVIEWED*: Not Applicable *COPY OF PRESCRIPTION DRUG MONITORING REPORT IN PATIENT VIVIAN: Not Applicable Instructions: Nosebleed, Adult Referrals: Sergio Gibbons MD [Primary Care Provider] - Forms: ED Department Discharge Additional Instructions: Evaluation the emergency room this morning in regards to recurrent right-sided nosebleeds bleeding after blowing her nose this morning. Recurrent problems with right-sided nosebleeds over the last week to 10 days. I found one area up in the superior aspect of the anterior nasal septum that was minimally bleeding in this area was cauterized with silver nitrate. On reinspection no bleeding is evident. Treatment is to continue with Polysporin ointment every night at bedtime via Q-tip.
== END 2018-10-20 10:25 | disposition home or self-care (01) ==
LOC: JD.ED 09:35
DX: R04.0 Epistaxis (principal); I10 Essential (primary) hypertension; I48.91 Unspecified atrial fibrillation; Z88.0 Allergy status to penicillin; Z88.6 Allergy status to analgesic agent; Z79.899 Other long term (current) drug therapy; Z87.891 Personal history of nicotine dependence
CPT/HCPCS: 30901; 30905; 99282; 99283-25

== ENCOUNTER 2018-12-25 08:46 | Emergency (ER) | payer MEDICARE, BC ==
[2018-12-25 09:05] VITALS: BP 151/71; PULSE 46
[2018-12-25] MEDS ORDERED: Oxymetazoline 0.05% Nasal Spray 30 ML Bottle NAS ONE (09:25)
[2018-12-25] MEDS ORDERED: Lidocaine 1% with EPINEPHrine 1:100,000 20 ML MDV INJECT ONE (10:08)
[2018-12-25] MEDS ORDERED: Tranexamic Acid 1,000 MG in Sodium Chloride 0.9% 100 ML IV SCH (10:15)
--- NOTE | 2018-12-25 11:26 | EDM.PDOC ---
ED HPI GENERAL MEDICAL PROBLEM - General Chief Complaint: ENT Problem Stated Complaint: NOSE BLEED Time Seen by Provider: 12/25/18 09:10 Source of Information: Reports: Patient History Limitations: Reports: No Limitations - History of Present Illness INITIAL COMMENTS - FREE TEXT/NARRATIVE: The patient presents with a right nostril nose bleed. This started this morning at 8:15. He had no trauma to his nose. He is on coumadin. He has had nose bleeds before. Six months ago he had cautery done and that worked. Onset: Sudden Duration: Hour(s): Severity: Moderate Improves with: Reports: None Worsens with: Reports: None Associated Symptoms: Reports: No Other Symptoms - Related Data Allergies Allergy/AdvReac Type Severity Reaction Status Date / Time Penicillins Allergy Fever Verified 12/25/18 09:04 Home Meds: Home Meds Aspirin 81 mg PO DAILY 12/03/15 [History] Digoxin 0.25 mg PO DAILY 12/03/15 [History] Metoprolol Tartrate [Lopressor] 100 mg PO BID 12/03/15 [History] Warfarin [Coumadin] 5 mg PO DAILY 12/03/15 [History] Albuterol [Proair HFA] 1 puff INH Q4HR PRN 12/10/15 [History] Tiotropium [Spiriva Handihaler] 1 puff INH BID 12/10/15 [History] Fluticasone/Vilanterol [Breo Ellipta 100-25 MCG Inhalation Kit] 1 puff INH DAILY 10/15/18 [History] Spironolactone [Aldactone] 25 mg PO BID #20 tablet 10/15/18 [Rx] Losartan [Cozaar] 50 mg PO DAILY 12/25/18 [History] Past Medical History HEENT History: Reports: Epistaxis Cardiovascular History: Reports: Afib, Hypertension Respiratory History: Reports: COPD, Sleep Apnea Musculoskeletal History: Reports: Other (See Below) Other Musculoskeletal History: leg cramps Endocrine/Metabolic History: Reports: Obesity/BMI 30+ - Past Surgical History HEENT Surgical History: Reports: Cataract Surgery Social & Family History - Tobacco Use Smoking Status *Q: Never Smoker - Caffeine Use Caffeine Use: Reports: Soda - Living Situation & Occupation Living situation: Reports: , with Spouse Occupation: Retired ED ROS ENT - Review of Systems Review Of Systems: See Below Constitutional: Reports: No Symptoms HEENT: Reports: Nosebleed Respiratory: Reports: No Symptoms Cardiovascular: Reports: No Symptoms Endocrine: Reports: No Symptoms GI/Abdominal: Reports: No Symptoms : Reports: No Symptoms Musculoskeletal: Reports: No Symptoms ED EXAM, ENT - Physical Exam Exam: See Below Exam Limited By: No Limitations General Appearance: Alert, No Apparent Distress Ears: Normal External Exam Nose: Active Bleeding (Right nostril to the lower septum) Mouth/Throat: Normal Inspection Head: Atraumatic, Normocephalic Neck: Normal Inspection Respiratory/Chest: No Respiratory Distress ED ENT PROCEDURES - Epistaxis Procedure Indication: Epistaxis Recent anticoagulants/antiplatlets: Yes Uncontrolled HTN: No Recent septal/nasal surgery: No Site of bleeding: Right Nare Topical Meds: Phenylephrine, Other (Lidocaine with epinephrine and TXA) Ice pack to area: No Chemical cautery: Silver Nitrate Topical Complications: No Course - Vital Signs Last Recorded V/S: Last Vital Signs Temp 97.4 F 12/25/18 09:02 Pulse 46 L 12/25/18 09:02 Resp 16 12/25/18 09:02 BP 151/71 H 12/25/18 09:02 Pulse Ox 98 12/25/18 09:02 - Orders/Labs/Meds Orders: Active Orders 24 hr Category Date Time Status Tranexamic Acid [Cyklokapron] 1,000 mg Med 12/25/18 10:15 Active Sodium Chloride 0.9% [Normal Saline] 100 ml IV ONETIME Medication Orders Tranexamic Acid 1,000 mg/ (Sodium Chloride) 110 mls @ 400 mls/hr IV ONETIME JODIE Last Admin: 12/25/18 10:48 Dose: 400 mls/hr Meds: Medications Generic Name Dose Route Start Last Admin Trade Name Freq PRN Reason Stop Dose Admin Tranexamic Acid 1,000 mg/ 110 mls @ 400 mls/hr 12/25/18 10:15 12/25/18 10:48 Sodium Chloride IV 400 mls/hr ONETIME JODIE Administration Discontinued Medications Generic Name Dose Route Start Last Admin Trade Name Freq PRN Reason Stop Dose Admin Lidocaine/Epinephrine 20 ml 12/25/18 10:08 12/25/18 10:48 Xylocaine 1% With Epinephrine 1:100,000 INJECT 12/25/18 10:09 20 ml ONETIME ONE Administration Oxymetazoline HCl 5 ml 12/25/18 09:25 12/25/18 09:41 Nasal Decongestant Orient PAM 12/25/18 09:26 5 ml ONETIME ONE Administration - Re-Assessments/Exams Free Text/Narrative Re-Assessment/Exam: 12/25/18 11:24 I used silver nitrate and I was able to slow the bleeding down but he sneezed a couple times and it would bleed again. I then put a cotton swab with lidocaine with epinephrine, TXA and afrin on it. That stopped the bleeding. I will discharge him home. Departure - Departure Time of Disposition: 11:30 Disposition: Home, Self-Care 01 Condition: Good Clinical Impression: Anterior epistaxis - Discharge Information *PRESCRIPTION DRUG MONITORING PROGRAM REVIEWED*: No *COPY OF PRESCRIPTION DRUG MONITORING REPORT IN PATIENT VIVIAN: No Referrals: Sergio Gibbons MD [Primary Care Provider] - Ankit Solorzano MD [Ordering Only Provider] - 1 Week Additional Instructions: Put some antibiotic ointment in each nostril 2 times per day for 3 days. This will keep your nose moist on the inside to avoid having another bleed. It appears you have been in a few times for nose bleeds. It may be worth seeing an clearance cutter. Dr Solorzano is a good option. There are others in [place]. Please return if you are worse. - My Orders Last 24 Hours: My Active Orders 12/25/18 10:15 Tranexamic Acid [Cyklokapron] 1,000 mg Sodium Chloride 0.9% [Normal Saline] 100 ml IV ONETIME - Assessment/Plan Last 24 Hours: My Active Orders 12/25/18 10:15 Tranexamic Acid [Cyklokapron] 1,000 mg Sodium Chloride 0.9% [Normal Saline] 100 ml IV ONETIME
== END 2018-12-25 11:38 | disposition home or self-care (01) ==
LOC: JD.ED 08:46
DX: R04.0 Epistaxis (principal); I10 Essential (primary) hypertension; I48.91 Unspecified atrial fibrillation; J44.9 Chronic obstructive pulmonary disease, unspecified; E66.9 Obesity, unspecified; Z68.33 Body mass index [BMI] 33.0-33.9, adult; Z88.0 Allergy status to penicillin; Z79.01 Long term (current) use of anticoagulants; Z79.51 Long term (current) use of inhaled steroids; Z79.82 Long term (current) use of aspirin; Z79.899 Other long term (current) drug therapy
CPT/HCPCS: 30901; 96365; 99282; A9270; J7030

== ENCOUNTER 2019-04-20 17:36 | Inpatient (IN) | payer MEDICARE, BC ==
[2019-04-20] MEDS ORDERED: Ondansetron 4 MG/2 ML SDV IVPUSH ONE (18:07)
--- NOTE | 2019-04-20 18:07 | EDM.PDOC ---
ED HPI GENERAL MEDICAL PROBLEM - General Chief Complaint: Gastrointestinal Problem Stated Complaint: VOMITING/DIARRHEA Time Seen by Provider: 04/20/19 18:02 Source of Information: Reports: Patient, Family (spouse) History Limitations: Reports: Respiratory Distress (Working quite hard to breathe. His O2 sats are only 86% on room air) - History of Present Illness INITIAL COMMENTS - FREE TEXT/NARRATIVE: 74-year-old male presents to the ED in the accompaniment of his . Apparently he became unwell acutely at about 1600 hrs. with acute onset of nausea vomiting and diarrhea followed shortly thereafter. He has been eating at home and there is very little chance for foodborne illness and his is not ill. He has had some chills but no defined fever. I found him to be quite tachypneic and working hard to breathe. He states they are currently fighting to try and get him on oxygen at home. His sats here were 86% on room air and are respiratory rate was 32/min. For placed on oxygen at 3 L/min by nasal cannula. The monitor also shows him to be in atrial fibrillation which apparently is chronic for him and his rate is anywhere between 68 and 170/min. Therefore congestive heart failure may be contributing to his dyspnea. States his emesis did contain food eaten at dinnertime. Otherwise it was bilious and without blood. He has had 3 diarrhea stools all yellowish in color with large volume water loss. He denies any recent changes in any of his medications. Denies any abdominal pain or cramps. Of note the patient denies being on any recent antibiotics. Onset: Today Onset Date: 04/20/19 Onset Time: 16:00 Duration: Hour(s):, Waxing/Waning Location: Reports: Abdomen (Nausea vomiting and diarrhea starting at 1600 hrs. today.) Quality: Reports: Other Severity: Moderate (Nuys any abdominal pain. More short of breath than anything.) Improves with: Reports: None Worsens with: Reports: None Context: Denies: Activity, Exercise, Lifting, Sick Contact, Trauma, Other Associated Symptoms: Reports: Cough, Loss of Appetite, Malaise, Nausea/Vomiting (Nausea and vomiting x2 of), Weakness ( bilious material mixed with food initially.), Other (Watery and loose.). Denies: No Other Symptoms, Confusion ( Nonproductive cough.), Chest Pain, cough w sputum, Diaphoresis, Fever/Chills, Headaches, Rash, Seizure, Shortness of Breath, Syncope Treatments CHARGER: Reports: Other (see below) - Related Data Allergies Allergy/AdvReac Type Severity Reaction Status Date / Time Penicillins Allergy Fever Verified 04/20/19 18:03 Home Meds: Home Meds Aspirin 81 mg PO DAILY 12/03/15 [History] Digoxin 0.25 mg PO DAILY 12/03/15 [History] Metoprolol Tartrate [Lopressor] 100 mg PO BID 12/03/15 [History] Warfarin [Coumadin] 5 mg PO ASDIRECTED 12/03/15 [History] Albuterol [Proair HFA] 2 puff INH Q4HR PRN 12/10/15 [History] Tiotropium [Spiriva Handihaler] 1 puff INH DAILY 12/10/15 [History] Spironolactone [Aldactone] 25 mg PO BID #20 tablet 10/15/18 [Rx] Losartan [Cozaar] 50 mg PO DAILY 12/25/18 [History] Fluticasone Propionate [Flovent] 1 spray PAM DAILY 04/21/19 [History] Past Medical History HEENT History: Reports: Epistaxis Cardiovascular History: Reports: Afib, Hypertension Respiratory History: Reports: COPD, Sleep Apnea Musculoskeletal History: Reports: Other (See Below) Other Musculoskeletal History: leg cramps Endocrine/Metabolic History: Reports: Obesity/BMI 30+ - Past Surgical History HEENT Surgical History: Reports: Cataract Surgery Social & Family History - Caffeine Use Caffeine Use: Reports: Soda - Living Situation & Occupation Living situation: Reports: , with Spouse Occupation: Retired ED [employer] - Review of Systems Review Of Systems: See Below Constitutional: Reports: Malaise, Weakness, Fatigue, Decreased Appetite. Denies : Fever, Chills HEENT: Reports: Glasses Respiratory: Reports: Shortness of Breath, Wheezing, Cough. Denies: Pleuritic Chest Pain (There is no wheezing), Sputum Cardiovascular: Reports: Blood Pressure Problem, Dyspnea on Exertion, Edema ( Nightly. Plate in his lower extremities. Usually to mid tib-fib), Lightheadedness ( and feel there is any worse than normal.), Palpitations. Denies: Chest Pain (Productive cough), Claudication, Orthopnea Endocrine: Reports: Fatigue GI/Abdominal: Reports: Diarrhea, Distension (Only distended. No excessive burping or belching), Nausea (2 loose diarrhea stools this afternoon since 1600 hrs.), Vomiting (Vomiting x2 of bilious material initial emesis mixed with dinner that he did eat at about 1130). Denies: Abdominal Pain : Reports: No Symptoms Musculoskeletal: Reports: Back Pain, Joint Pain Skin: Reports: Bruising (His hips shoulders and neck at times.) Neurological: Reports: No Symptoms, Trouble Speaking (Due to), Difficulty Walking Psychiatric: Reports: No Symptoms ( respiratory difficulties.) Hematologic/Lymphatic: Reports: No Symptoms Immunologic: Reports: No Symptoms ED EXAM, GI/ABD - Physical Exam Exam: See Below Exam Limited By: No Limitations General Appearance: Alert, WD/WN, Moderate Distress, Other (By Jaida distress. Signs show temperature of 36.6. Heart rate was 120 and irregularly irregular on the monitor and at times it goes as high as 170. Respiratory was 18/min with O2 sats of 86% on room air. He was placed on 3 L of oxygen by nasal cannula to achieve O2 sats of 91 to 92%. Him at this rate until I see his ABGs. Pressure was elevated at 156/90.) Eyes: Bilateral: Normal Appearance (No scleral icterus or blepharal pallor.) Throat/Mouth: Normal Oropharynx, Other (Is mildly dry.) Head: Atraumatic, Normocephalic Neck: Normal Inspection, Supple, Non-Tender, Full Range of Motion. No: Lymphadenopathy (L), Lymphadenopathy (R) Respiratory/Chest: Chest Non-Tender, Respiratory Distress (Tachypnea at rest anywhere between 18 and 24/min.), Decreased Breath Sounds, Rales (He has breath sounds to both posterior lung montoya by 25%). No: Lungs Clear, Normal Breath Sounds, Rhonchi ( few fine crackles at both bases.), Wheezing Cardiovascular: No Gallop, No Murmur, No Rub, Irregularly Irregular (Are regular and he is in chronic atrial fibrillation. Current rate is 1 20-1 70). No: Normal Peripheral Pulses, No Edema GI/Abdominal Exam: Non-Tender, No Organomegaly (Abdomen is firm to palpation and diffusely tympanitic.), No Abnormal Bruit, No Mass, Distended (No sounds are hyperactive in all 4 quadrants. Stented in tympanitic to percussion particularly in the upper abdomen suggestive of aerophagia. Surgical scars appreciated.), Abnormal Bowel Sounds, Other (Male) Exam: No Hernia Back Exam: Decreased Range of Motion, Other (Kyphosis thoracic spine.). No: CVA Tenderness (L), CVA Tenderness (R) Extremities: Pedal Edema (2+ pitting edema both lower extremities up to the mid tibia bilaterally. There is chronic venous stasis dermatitis in both lower extremities.) Neurological: Alert ( Ulcerations or open wounds identified on the lower extremities), Oriented, CN II-XII Intact, Normal Cognition Psychiatric: Flat Affect Skin Exam: Warm, Dry, Intact, Normal Color, No Rash EKG INTERPRETATION EKG Date: 04/20/19 Time: 18:07 Rhythm: A-Fib (With a rate of 68 to 170/min.) Rate (Beats/Min): 109 [place]: Normal P-Wave: Absent QRS: Other ST-T: Other (There is decreased voltage in both the limb and precordial leads. Diffuse nonspecific repolarization abnormalities in leads I and aVL.) QT: Normal EKG Interpretation Comments: Abnormal ECG with no signs of ischemia. Course - Vital Signs Last Recorded V/S: Last Vital Signs Temp 36.5 C 04/20/19 21:56 Pulse 79 04/20/19 23:45 Resp 19 04/20/19 21:56 BP 90/50 L 04/20/19 23:45 Pulse Ox 93 L 04/20/19 21:56 - Orders/Labs/Meds Orders: Active Orders 24 hr Category Date Time Status CULTURE BLOOD [BC] Stat Lab 04/20/19 19:45 Received CULTURE BLOOD [BC] Stat Lab 04/20/19 19:54 Received Sodium Chloride 0.9% [Normal Saline] 1,000 ml Med 04/20/19 20:00 Active IV ASDIRECTED cefTRIAXone [Rocephin] 2 gm Med 04/20/19 20:15 Active Sodium Chloride 0.9% [Normal Saline] 100 ml IV Q24H Blood Culture x2 Reflex Set [OM.PC] Stat Oth 04/20/19 18:06 Ordered Medication Orders Acetaminophen (Tylenol) 650 mg PO Q4H PRN PRN Reason: Pain (Mild 1-3)/fever Al Hydroxide/Mg Hydroxide (Mag-Al Plus) 30 ml PO Q4H PRN PRN Reason: Heartburn Last Admin: 04/21/19 00:35 Dose: 30 ml Albuterol/Ipratropium (Duoneb 3.0-0.5 Mg/3 Ml) 3 ml NEB Q6HRRT PRN PRN Reason: Shortness of Breath Sodium Chloride (Normal Saline) 1,000 mls @ 999 mls/hr IV ASDIRECTED [facility] Last Admin: 04/20/19 21:40 Dose: 999 mls/hr Ceftriaxone Sodium 2 gm/ (Sodium Chloride) 100 mls @ 200 mls/hr IV Q24H [facility] Last Admin: 04/20/19 20:47 Dose: 200 mls/hr Dextrose/Lactated Ringer's (Dextrose 5%-Lactated Ringers) 1,000 mls @ 100 mls/ hr IV ASDIRECTED [facility] Last Admin: 04/21/19 04:31 Dose: 100 mls/hr Metoprolol Tartrate (Lopressor) 100 mg PO BID [facility] Last Admin: 04/20/19 23:45 Dose: 100 mg Ondansetron HCl (Zofran) 4 mg IV Q4H PRN PRN Reason: Nausea/Vomiting Warfarin Sodium (Pharmacy To Dose - Warfarin) 1 dose .XX ASDIRECTED [facility] Warfarin Sodium (Coumadin) 5 mg PO 1800 [facility] Stop: 04/21/19 18:01 Labs: Laboratory Tests 04/20/19 04/20/19 04/20/19 Range/Units 16:28 16:28 16:28 WBC 14.52 H (4.23-9.07) K/mm3 RBC 5.55 (4.63-6.08) M/mm3 Hgb 17.2 (13.7-17.5) gm/dl Hct 54.3 H (40.1-51.0) % MCV 97.8 H D (79.0-92.2) fl MCH 31.0 (25.7-32.2) pg MCHC 31.7 L (32.2-35.5) g/dl RDW Std Deviation 51.4 H (35.1-43.9) fL Plt Count 195 (163-337) K/mm3 MPV 11.5 (9.4-12.3) fl Neutrophils % (Manual) 92 H (40-60) % Band Neutrophils % 3 (0-10) % Lymphocytes % (Manual) 3 L (20-40) % Atypical Lymphs % 0 % Monocytes % (Manual) 2 (2-10) % Eosinophils % (Manual) 0 L (0.8-7.0) % Basophils % (Manual) 0 L (0.2-1.2) Platelet Estimate Adequate RBC Morph Comment Normal PT 26.6 H (9.7-12.0) SECONDS INR 2.57 APTT 36 H (22-31) SECONDS Puncture Site ABG pH (7.35-7.45) ABG pCO2 (35.0-45.0) mmHg ABG pO2 (80.0-100.0) mmHg ABG HCO3 (22.0-26.0) meq/L ABG O2 Saturation (96.0-97.0) % ABG Base Excess (-2-2.0) A-a Gradient mmHg O2 Delivery Device Oxygen Flow Rate FiO2 (21.00-100.00) % Sodium 136 (136-145) mEq/L Potassium 5.3 H (3.5-5.1) mEq/L Chloride 101 (98-107) mEq/L Carbon Dioxide 22 (21-32) mEq/L Anion Gap 18.3 H (5-15) BUN 24 H (7-18) mg/dL Creatinine 1.2 (0.7-1.3) mg/dL Est Cr Clr Drug Dosing TNP Estimated GFR (MDRD) 59 (>60) mL/min BUN/Creatinine Ratio 20.0 H (14-18) Glucose 154 H (83-115) mg/dL Lactic Acid (0.4-2.0) mmol/L Calcium 9.2 (8.5-10.1) mg/dL Magnesium 1.7 L (1.8-2.4) mg/dl Total Bilirubin 1.1 H (0.2-1.0) mg/dL AST 26 (15-37) U/L ALT 31 (16-63) U/L Alkaline Phosphatase 125 H (46-116) U/L CK-MB (CK-2) 2.2 (0-3.6) ng/ml Troponin I < 0.017 (0.00-0.056) ng/mL C-Reactive Protein 3.5 H* (<1.0) mg/dL Total Protein 8.4 H (6.4-8.2) g/dl Albumin 3.9 (3.4-5.0) g/dl Globulin 4.5 gm/dL Albumin/Globulin Ratio 0.9 L (1-2) Digoxin (0.9-2.0) ng/mL 04/20/19 04/20/19 04/20/19 Range/Units 16:28 19:00 19:54 WBC (4.23-9.07) K/mm3 RBC (4.63-6.08) M/mm3 Hgb (13.7-17.5) gm/dl Hct (40.1-51.0) % MCV (79.0-92.2) fl MCH (25.7-32.2) pg MCHC (32.2-35.5) g/dl RDW Std Deviation (35.1-43.9) fL Plt Count (163-337) K/mm3 MPV (9.4-12.3) fl Neutrophils % (Manual) (40-60) % Band Neutrophils % (0-10) % Lymphocytes % (Manual) (20-40) % Atypical Lymphs % % Monocytes % (Manual) (2-10) % Eosinophils % (Manual) (0.8-7.0) % Basophils % (Manual) (0.2-1.2) Platelet Estimate RBC Morph Comment PT (9.7-12.0) SECONDS INR APTT (22-31) SECONDS Puncture Site Rt radial ABG pH 7.35 (7.35-7.45) ABG pCO2 37.8 (35.0-45.0) mmHg ABG pO2 73.0 L (80.0-100.0) mmHg ABG HCO3 20.5 L (22.0-26.0) meq/L ABG O2 Saturation 90.9 L (96.0-97.0) % ABG Base Excess -4.1 L (-2-2.0) A-a Gradient 80 mmHg O2 Delivery Device Nasal cannula Oxygen Flow Rate 2.0 FiO2 28.00 (21.00-100.00) % Sodium (136-145) mEq/L Potassium (3.5-5.1) mEq/L Chloride (98-107) mEq/L Carbon Dioxide (21-32) mEq/L Anion Gap (5-15) BUN (7-18) mg/dL Creatinine (0.7-1.3) mg/dL Est Cr Clr Drug Dosing Estimated GFR (MDRD) (>60) mL/min BUN/Creatinine Ratio (14-18) Glucose (83-115) mg/dL Lactic Acid 1.7 (0.4-2.0) mmol/L Calcium (8.5-10.1) mg/dL Magnesium (1.8-2.4) mg/dl Total Bilirubin (0.2-1.0) mg/dL AST (15-37) U/L ALT (16-63) U/L Alkaline Phosphatase (46-116) U/L CK-MB (CK-2) (0-3.6) ng/ml Troponin I (0.00-0.056) ng/mL C-Reactive Protein (<1.0) mg/dL Total Protein (6.4-8.2) g/dl Albumin (3.4-5.0) g/dl Globulin gm/dL Albumin/Globulin Ratio (1-2) Digoxin 1.2 (0.9-2.0) ng/mL Meds: Medications Generic Name Dose Route Start Last Admin Trade Name Freq PRN Reason Stop Dose Admin Acetaminophen 650 mg 04/20/19 21:57 Tylenol PO Q4H PRN Pain (Mild 1-3)/fever Al Hydroxide/Mg Hydroxide 30 ml 04/21/19 00:03 04/21/19 00:35 Mag-Al Plus PO 30 ml Q4H PRN Administration Heartburn Albuterol/Ipratropium 3 ml 04/20/19 22:21 Duoneb 3.0-0.5 Mg/3 Ml NEB Q6HRRT PRN Shortness of Breath Sodium Chloride 1,000 mls @ 999 mls/hr 04/20/19 20:00 04/20/19 21:40 Normal Saline IV 999 mls/hr ASDIRECTED JODIE Administration Ceftriaxone Sodium 2 gm/ 100 mls @ 200 mls/hr 04/20/19 20:15 04/20/19 20:47 Sodium Chloride IV 200 mls/hr Q24H JODIE Administration Dextrose/Lactated Ringer's 1,000 mls @ 100 mls/hr 04/21/19 02:00 04/21/19 04: 31 Dextrose 5%-Lactated Ringers IV 100 mls/hr ASDIRECTED [facility] Administration Metoprolol Tartrate 100 mg 04/20/19 22:30 04/20/19 23:45 Lopressor PO 100 mg BID [facility] Administration Ondansetron HCl 4 mg 04/20/19 21:57 Zofran IV Q4H PRN Nausea/Vomiting Warfarin Sodium 1 dose 04/20/19 22:15 Pharmacy To Dose - Warfarin .XX ASDIRECTED [facility] Warfarin Sodium 5 mg 04/21/19 18:00 Coumadin PO 04/21/19 18:01 1800 [facility] Discontinued Medications Generic Name Dose Route Start Last Admin Trade Name Freq PRN Reason Stop Dose Admin Acetaminophen 650 mg 04/20/19 19:54 04/20/19 20:00 Tylenol PO 04/20/19 19:55 650 mg ONETIME ONE Administration Acetaminophen Confirm 04/20/19 20:03 04/21/19 00:08 Tylenol Administered 04/20/19 20:04 Not Given Dose 325 mg .ROUTE .STK-MED ONE Dextrose/Sodium Chloride 1,000 mls @ 125 mls/hr 04/20/19 18:15 04/20/19 18:34 Dextrose 5%-Normal Saline IV 125 mls/hr ASDIRECTED [facility] Administration Magnesium Sulfate 4 gm/ Premix 50 mls @ 12.5 mls/hr 04/20/19 22:01 04/20/19 23:30 IV 04/21/19 02:00 12.5 mls/hr ONETIME ONE Administration Lactated Ringer's 500 mls @ 999 mls/hr 04/21/19 01:00 04/21/19 01:21 Ringers, Lactated IV 04/21/19 01:30 999 mls/hr .BOLUS ONE Administration Ondansetron HCl 4 mg 04/20/19 18:07 04/20/19 18:34 Zofran IVPUSH 04/20/19 18:08 4 mg ONETIME ONE Administration - Radiology Interpretation Free Text/Narrative:: 74-year-old male presents to the ED in the accompaniment of his due to acute onset of nausea vomiting and diarrhea at 1600 hrs. today. Patient has chronic atrial fibrillation and rate seems to be a little bit poorly controlled with rate as high as 170 at times. He is on digoxin and metoprolol for rate control. He is tachypneic and quite dyspneic and O2 sats are only 86% on room air. Was placed on 3 L/min by nasal cannula. Decreased air entry to the lower 25% of lung montoya posteriorly. Plan: He will have a chest x-ray and an abdominal film carried out. Routine labs including blood cultures x2. ABGs to be done as well. IV is D5 normal saline at 125 mils per hour. Given Zofran 4 mg IV for nausea relief. As he is likely going to need admission to hospital. - Re-Assessments/Exams Free Text/Narrative Re-Assessment/Exam: 04/20/19 19:45 Labs reveal an elevated white count at 14.52 with 92% neutrophils and 3% bands cells. Hemoglobin is 17.2 with hematocrit of 54.3 suggesting significant volume depletion and hemoconcentration. Platelet count is 195,000. PT is elevated at 26.6 with an INR of 2.57 PTT is 36. ABGs revealed a pH of 7.35 and a PCO2 of 37.8 i.e. a non-retainer. PO2 was 73.0. Bicarb was 20.5 base excess is -4.1. This is on oxygen at 2 L/min. Odium 136 potassium slightly elevated at 5.3. Chloride 101 with a bicarb of 22. Anion gap is elevated at 18.3. BUN was 24 with a creatinine of 1.2. EGFR is 59. Glucose is 154 with a calcium of 9.2. Magnesium slightly low at 1.7. Bilirubin minimally elevated at 1.1. AST is 26 ALT is 31 alk phos today is 125. CK-MB fraction was 2.2 with a troponin I of less than 0.017. C-reactive protein is elevated at 3.5 total protein is 8.4 with an albumin fraction of 3.9 digoxin is 1.2 04/20/19 20:06 Upon review with the patient has now spiked a fever. Blood cultures x2 have been drawn. Lactic acid will be drawn as well. His white count is 14.52 with a left shift suggesting bacterial infection. There is a small chance that he may have influenza type B with onset of nausea vomiting and diarrhea. He has not been able to void. His labs suggest that he is volume depleted with marked hemoconcentration some of this may be elevated due to chronic hypoxemia. Increased his oxygen to 4 L/min to obtain O2 sats of about 92 to 93%. ABGs reveal he is not a CO2 retainer. Chest x-ray does not reveal any signs of pneumonia however it is of poor quality with poor inspirational view. X-ray of the abdomen shows air throughout the bowel compatible with aerophagia but no signs of bowel obstruction. Discussed the case with Dr. Daley and the patient will be admitted to the hospital. The plan will be to give him an initial dose of antibiotic Rocephin 2 g intravenously while in the ED. The analyzer is now up and running in the BNP should be available within the hour as will the influenza screen. He has been given Tylenol 650 mg by mouth for fever relief. He will receive a liter of normal saline at open at this time. This should relieve his mild hyperkalemia of 5.3. Departure - Departure Time of Disposition: 20:11 Disposition: Admitted As Inpatient 65 Condition: Fair Clinical Impression: Nausea, vomiting, and diarrhea, Acute febrile illness, Volume depletion, Hypoxemia, Hyperkalemia Sleep apnea syndrome Qualifiers: Sleep apnea type: obstructive Qualified Code(s): G47.33 - Obstructive sleep apnea (adult) (pediatric) COPD (chronic obstructive pulmonary disease) Qualifiers: COPD type: emphysema Emphysema type: panlobular Qualified Code(s): J43.1 - Panlobular emphysema - Discharge Information *PRESCRIPTION DRUG MONITORING PROGRAM REVIEWED*: Not Applicable *COPY OF PRESCRIPTION DRUG MONITORING REPORT IN PATIENT VIVIAN: Not Applicable Sepsis Event Note - Focused Exam Vital Signs: Vital Signs Temp 04/20/19 20:00 37.6 C Date Exam was Performed: 04/21/19 Time Exam was Performed: 07:07 - My Orders Last 24 Hours: My Active Orders 04/20/19 18:06 Blood Culture x2 Reflex Set [OM.PC] Stat 04/20/19 19:45 CULTURE BLOOD [BC] Stat 04/20/19 19:54 CULTURE BLOOD [BC] Stat 04/20/19 20:00 Sodium Chloride 0.9% [Normal Saline] 1,000 ml IV ASDIRECTED 04/20/19 20:15 cefTRIAXone [Rocephin] 2 gm Sodium Chloride 0.9% [Normal Saline] 100 ml IV Q24H - Assessment/Plan Last 24 Hours: My Active Orders 04/20/19 18:06 Blood Culture x2 Reflex Set [OM.PC] Stat 04/20/19 19:45 CULTURE BLOOD [BC] Stat 04/20/19 19:54 CULTURE BLOOD [BC] Stat 04/20/19 20:00 Sodium Chloride 0.9% [Normal Saline] 1,000 ml IV ASDIRECTED 04/20/19 20:15 cefTRIAXone [Rocephin] 2 gm Sodium Chloride 0.9% [Normal Saline] 100 ml IV Q24H
[2019-04-20] MEDS ORDERED: Dextrose 5%-0.9% NaCl 1,000 ML IV SCH (18:15)
[2019-04-20] MEDS ORDERED: Acetaminophen 325 MG Tab PO ONE (19:54)
[2019-04-20] MEDS ORDERED: Sodium Chloride 0.9% 1,000 ML IV SCH (20:00)
[2019-04-20] MEDS ORDERED: Acetaminophen 325 MG Tab ONE (20:03)
[2019-04-20] MEDS: cefTRIAXone 2 GM in Sodium Chloride 0.9% 100 ML IV SCH (20:47)
--- NOTE | 2019-04-20 21:43 | PCM.HP.2 ---
H&P History of Present Illness - General Date of Service: 04/20/19 Admit Problem/Dx: Admission Diagnosis/Problem Admission Diagnosis/Problem Nausea and vomiting - History of Present Illness Initial Comments - Free Text/Narative: 74-year-old male with history of atrial fibrillation presents to the emergency department after having an acute episode of nausea, vomiting, and diarrhea occurring at approximately 1600 hrs. He states he had multiple episodes of diarrhea and a total of 3 episodes of vomiting. He states he has not had anything unusual to eat and had a sausage sandwich and some chips for lunch. He has not been eating out. They did state he has some shaking chills but no significant fever at home. When patient presented to the emergency room his oxygen saturation was 86% on room air with a respiratory rate of 32/min. Patient was placed on oxygen at 3 L/min. Patient also had bouts of atrial fibrillation with a ventricular rate of 170 bpm. There was no hematemesis, melena, or hematochezia. He did have food containing emesis with bile. does note that he has been trying to get home O2, but because he has a CPAP machine Medicare has not approved his oxygen. In the ED patient was given a bolus of IV fluid, started on D5 normal saline at 125 mL/h. Chest x-ray and abdominal films showed no significant acute findings. And his influenza was negative. Laboratory tests: WBC 14.52, hemoglobin 17.2, platelets 195, INR 2.57, APTT 36, sodium 136, potassium 5.3, chloride 101, carbon dioxide 22, anion gap 18.3, BUN 24, creatinine 1.2, glucose 154, C-reactive protein 3.5, magnesium 1.7, troponin less than 0.017, digoxin level 1.2, and lactic acid of 1.7. - Related Data Allergies/Adverse Reactions: Allergies Allergy/AdvReac Type Severity Reaction Status Date / Time Penicillins Allergy Fever Verified 04/20/19 18:03 Home Medications: Home Meds Aspirin 81 mg PO DAILY 12/03/15 [History] Digoxin 0.25 mg PO DAILY 12/03/15 [History] Metoprolol Tartrate [Lopressor] 100 mg PO BID 12/03/15 [History] Warfarin [Coumadin] 5 mg PO DAILY 12/03/15 [History] Albuterol [Proair HFA] 1 puff INH Q4HR PRN 12/10/15 [History] Tiotropium [Spiriva Handihaler] 1 puff INH BID 12/10/15 [History] Fluticasone/Vilanterol [Breo Ellipta 100-25 MCG Inhalation Kit] 1 puff INH DAILY 10/15/18 [History] Spironolactone [Aldactone] 25 mg PO BID #20 tablet 10/15/18 [Rx] Losartan [Cozaar] 50 mg PO DAILY 12/25/18 [History] Past Medical History HEENT History: Reports: Epistaxis Cardiovascular History: Reports: Afib, Hypertension Respiratory History: Reports: COPD, Sleep Apnea Musculoskeletal History: Reports: Other (See Below) Other Musculoskeletal History: leg cramps Endocrine/Metabolic History: Reports: Obesity/BMI 30+ - Past Surgical History HEENT Surgical History: Reports: Cataract Surgery Social & Family History - Tobacco Use Smoking Status *Q: Former Smoker Used Tobacco, but Quit: Yes Month/Year Tobacco Last Used: 2016 - Caffeine Use Caffeine Use: Reports: Soda - Living Situation & Occupation Living situation: Reports: , with Spouse Occupation: Retired H&P Review of Systems - Review of Systems: Review Of Systems: Comprehensive ROS is negative, except as noted in HPI. Exam - Exam Exam: See Below - Vital Signs Vital Signs: Last Vital Signs Temp 99.6 F 04/20/19 20:00 Pulse 120 H 04/20/19 18:01 Resp 16 04/20/19 18:01 BP 156/90 H 04/20/19 18:01 Pulse Ox 88 L 04/20/19 18:01 - Exam Quality Assessment: Supplemental Oxygen General: Alert, Oriented, 4 HEENT: Conjunctiva Clear, Hearing Intact, Mucosa Moist & [place] Neck: Supple, Trachea Midline, 2 Lungs: Normal Respiratory Effort, Decreased Breath Sounds, Crackles Cardiovascular: Regular Rhythm, Irregular Rhythm GI/Abdominal Exam: Normal Bowel Sounds, Soft, Non-Tender, No Organomegaly, No Distention, No Abnormal Bruit Back Exam: Normal Inspection Extremities: Normal Inspection, Normal Range of Motion, Non-Tender, No Pedal Edema, Normal Capillary Refill Skin: Warm, Dry, Intact Neurological: Cranial Nerves Intact, Reflexes Equal Bilateral Neuro Extensive - Mental Status: Alert, Oriented x3, Normal Mood/Affect, Normal Cognition Psychiatric: Alert, Normal Affect, Normal Mood - Patient Data Lab Results Last 24 hrs: Laboratory Results - last 24 hr 04/20/19 04/20/19 04/20/19 Range/Units 16:28 16:28 16:28 WBC 14.52 H (4.23-9.07) K/mm3 RBC 5.55 (4.63-6.08) M/mm3 Hgb 17.2 (13.7-17.5) gm/dl Hct 54.3 H (40.1-51.0) % MCV 97.8 H D (79.0-92.2) fl MCH 31.0 (25.7-32.2) pg MCHC 31.7 L (32.2-35.5) g/dl RDW Std Deviation 51.4 H (35.1-43.9) fL Plt Count 195 (163-337) K/mm3 MPV 11.5 (9.4-12.3) fl Neutrophils % (Manual) 92 H (40-60) % Band Neutrophils % 3 (0-10) % Lymphocytes % (Manual) 3 L (20-40) % Atypical Lymphs % 0 % Monocytes % (Manual) 2 (2-10) % Eosinophils % (Manual) 0 L (0.8-7.0) % Basophils % (Manual) 0 L (0.2-1.2) Platelet Estimate Adequate RBC Morph Comment Normal PT 26.6 H (9.7-12.0) SECONDS INR 2.57 APTT 36 H (22-31) SECONDS Puncture Site ABG pH (7.35-7.45) ABG pCO2 (35.0-45.0) mmHg ABG pO2 (80.0-100.0) mmHg ABG HCO3 (22.0-26.0) meq/L ABG O2 Saturation (96.0-97.0) % ABG Base Excess (-2-2.0) A-a Gradient mmHg O2 Delivery Device Oxygen Flow Rate FiO2 (21.00-100.00) % Sodium 136 (136-145) mEq/L Potassium 5.3 H (3.5-5.1) mEq/L Chloride 101 (98-107) mEq/L Carbon Dioxide 22 (21-32) mEq/L Anion Gap 18.3 H (5-15) BUN 24 H (7-18) mg/dL Creatinine 1.2 (0.7-1.3) mg/dL Est Cr Clr Drug Dosing TNP Estimated GFR (MDRD) 59 (>60) mL/min BUN/Creatinine Ratio 20.0 H (14-18) Glucose 154 H (83-115) mg/dL Lactic Acid (0.4-2.0) mmol/L Calcium 9.2 (8.5-10.1) mg/dL Magnesium 1.7 L (1.8-2.4) mg/dl Total Bilirubin 1.1 H (0.2-1.0) mg/dL AST 26 (15-37) U/L ALT 31 (16-63) U/L Alkaline Phosphatase 125 H (46-116) U/L CK-MB (CK-2) 2.2 (0-3.6) ng/ml Troponin I < 0.017 (0.00-0.056) ng/mL C-Reactive Protein 3.5 H* (<1.0) mg/dL Total Protein 8.4 H (6.4-8.2) g/dl Albumin 3.9 (3.4-5.0) g/dl Globulin 4.5 gm/dL Albumin/Globulin Ratio 0.9 L (1-2) Digoxin (0.9-2.0) ng/mL 04/20/19 04/20/19 04/20/19 Range/Units 16:28 19:00 19:54 WBC (4.23-9.07) K/mm3 RBC (4.63-6.08) M/mm3 Hgb (13.7-17.5) gm/dl Hct (40.1-51.0) % MCV (79.0-92.2) fl MCH (25.7-32.2) pg MCHC (32.2-35.5) g/dl RDW Std Deviation (35.1-43.9) fL Plt Count (163-337) K/mm3 MPV (9.4-12.3) fl Neutrophils % (Manual) (40-60) % Band Neutrophils % (0-10) % Lymphocytes % (Manual) (20-40) % Atypical Lymphs % % Monocytes % (Manual) (2-10) % Eosinophils % (Manual) (0.8-7.0) % Basophils % (Manual) (0.2-1.2) Platelet Estimate RBC Morph Comment PT (9.7-12.0) SECONDS INR APTT (22-31) SECONDS Puncture Site Rt radial ABG pH 7.35 (7.35-7.45) ABG pCO2 37.8 (35.0-45.0) mmHg ABG pO2 73.0 L (80.0-100.0) mmHg ABG HCO3 20.5 L (22.0-26.0) meq/L ABG O2 Saturation 90.9 L (96.0-97.0) % ABG Base Excess -4.1 L (-2-2.0) A-a Gradient 80 mmHg O2 Delivery Device Nasal cannula Oxygen Flow Rate 2.0 FiO2 28.00 (21.00-100.00) % Sodium (136-145) mEq/L Potassium (3.5-5.1) mEq/L Chloride (98-107) mEq/L Carbon Dioxide (21-32) mEq/L Anion Gap (5-15) BUN (7-18) mg/dL Creatinine (0.7-1.3) mg/dL Est Cr Clr Drug Dosing Estimated GFR (MDRD) (>60) mL/min BUN/Creatinine Ratio (14-18) Glucose (83-115) mg/dL Lactic Acid 1.7 (0.4-2.0) mmol/L Calcium (8.5-10.1) mg/dL Magnesium (1.8-2.4) mg/dl Total Bilirubin (0.2-1.0) mg/dL AST (15-37) U/L ALT (16-63) U/L Alkaline Phosphatase (46-116) U/L CK-MB (CK-2) (0-3.6) ng/ml Troponin I (0.00-0.056) ng/mL C-Reactive Protein (<1.0) mg/dL Total Protein (6.4-8.2) g/dl Albumin (3.4-5.0) g/dl Globulin gm/dL Albumin/Globulin Ratio (1-2) Digoxin 1.2 (0.9-2.0) ng/mL Result Diagrams: 04/20/19 16:28 04/20/19 16:28 Zaki Results Last 24 hrs: Microbiology 04/20/19 19:53 Influenza Type A Antigen Screen - Final Nasal Aspirate, Unspecified NEGATIVE INFLUENZA A VIRUS AG REFERENCE RANGE: NEGATIVE Influenza Type B Antigen Screen - Final NEGATIVE INFLUENZA B VIRUS AG REFERENCE RANGE: NEGATIVE EKG INTERPRETATION EKG Date: 04/20/19 Rhythm: A-Fib Rate (Beats/Min): 109 [place]: Normal P-Wave: Absent QT: Normal Sepsis Event Note - Evaluation Sepsis Screening Result: No Definite Risk - Focused Exam Vital Signs: Vital Signs Temp Temp Pulse Resp BP Pulse Ox 04/20/19 20:00 99.6 F 04/20/19 18:01 97.8 F 120 H 16 156/90 H 88 L Date Exam was Performed: 04/21/19 Time Exam was Performed: 00:39 Problem List Initiated/Reviewed/Updated: Yes Orders Last 24hrs: Active Orders 24 hr Category Date Time Status Admission Status [Patient Status] [ADT] Routine ADT 04/20/19 20:11 Active EKG Documentation Completion [RC] STAT Care 04/20/19 18:03 Active Oxygen Therapy [RC] ASDIRECTED Care 04/20/19 19:53 Active Abdomen 1V Flat [CR] Stat Exams 04/20/19 18:03 Taken Chest 1V Frontal [CR] Stat Exams 04/20/19 18:03 Taken CULTURE BLOOD [BC] Stat Lab 04/20/19 19:45 Received CULTURE BLOOD [BC] Stat Lab 04/20/19 19:54 Received URINALYSIS W/MICROSCOPIC [UA W/MICROSCOPIC] [URIN] Stat Lab 04/20/19 18:05 Ordered Sodium Chloride 0.9% [Normal Saline] 1,000 ml Med 04/20/19 20:00 Active IV ASDIRECTED cefTRIAXone [Rocephin] 2 gm Med 04/20/19 20:15 Active Sodium Chloride 0.9% [Normal Saline] 100 ml IV Q24H Blood Culture x2 Reflex Set [OM.PC] Stat Oth 04/20/19 18:06 Ordered Medication Orders Sodium Chloride (Normal Saline) 1,000 mls @ 999 mls/hr IV ASDIRECTED JODIE Ceftriaxone Sodium 2 gm/ (Sodium Chloride) 100 mls @ 200 mls/hr IV Q24H JODIE Last Admin: 04/20/19 20:47 Dose: 200 mls/hr Assessment/Plan Comment:: Assessment * Gastroenteritis * Multiple acute episodes of vomiting and diarrhea * Resolved in the emergency room with Zofran * Hypovolemia * Received 1 L normal saline in the emergency room * Atrial fibrillation * Patient was found to be in RVR with rate up to 170 in the emergency room * Rate stabilized with fluids * On digoxin and metoprolol * Anticoagulation with warfarin * INR 2.57 * Hypomagnesemia * Magnesium 1.7 * Hyperkalemia * Potassium 5.3 * Likely secondary to hypovolemia * Hypertension * Home meds include: Metoprolol, losartan, spironolactone Plan * Refer for observation on telemetry * Continue fluid rehydration * Advance diet as tolerated * Continue home meds * Replenish magnesium * Recheck CBC, CMP, and magnesium in the morning * Zofran for nausea * Continue home inhalers * Warfarin pharmacy to dose * VTE prophylaxis with warfarin * CODE STATUS: Full code * Anticipated length of stay less than 48 hours - Mortality Measure Prognosis:: Good
[2019-04-20] MEDS ORDERED: Acetaminophen 325 MG Tab PO PRN (21:57)
[2019-04-20] MEDS ORDERED: Ondansetron 4 MG/2 ML SDV IV PRN (21:57)
[2019-04-20] MEDS ORDERED: Magnesium Sulfate/Water 4 GM in Premix Bag 1 BAG IV ONE (22:01)
[2019-04-20] MEDS ORDERED: Albuterol/Ipratropium 3.0-0.5 MG/3 ML Neb Soln NEB PRN (22:21)
[2019-04-20] MEDS: Metoprolol Tartrate 100 MG Tab PO SCH (23:45)
[2019-04-21] MEDS ORDERED: Aluminum Hydroxide/Magnesium Hydroxide/Simethicone Susp 30 ML Cup PO PRN (00:03)
[2019-04-21] MEDS ORDERED: Lactated Ringers 500 ML IV ONE (01:00)
[2019-04-21] MEDS ORDERED: Dextrose 5%-Lactated Ringers 1,000 ML IV SCH (02:00)
--- NOTE | 2019-04-21 06:22 | CR ---
Abdomen: Supine view of the abdomen was obtained. Comparison: No prior abdominal x-ray. Scattered disc space narrowing and endplate spurring are noted within the spine. Joint space narrowing is noted within the right hip. Bowel gas pattern is normal. No abnormal calcifications or soft tissue abnormality is identified. Impression: 1. Findings as noted above. 2. Nothing acute is seen. Diagnostic code #2 This report was dictated in [place] Standard Time
--- NOTE | 2019-04-21 06:22 | CR ---
Chest: AP view of the chest was obtained. Comparison: Prior chest x-ray of 02/20/18. Heart is enlarged. Pulmonary vessels are increased. Lungs otherwise are clear. Bony structures are grossly intact. Impression: 1. Cardiomegaly and increased pulmonary vasculature. Findings are stable from prior exam. Diagnostic code #2 This report was dictated in [place] Standard Time
[2019-04-21] MEDS: Metoprolol Tartrate 100 MG Tab PO SCH (09:38)
[2019-04-21] MEDS: Spironolactone 25 MG Tab PO SCH ×2 (12:00→17:01)
[2019-04-21] MEDS ORDERED: Albuterol 0.083% 2.5 MG/3 ML Neb Soln NEB PRN (13:00)
[2019-04-21] MEDS ORDERED: Non-Formulary Medication 1 Each (Digoxin [Digoxin] 0.25 MG) PO SCH (13:15)
--- NOTE | 2019-04-21 13:16 | PCM.PN ---
- General Info Date of Service: 04/21/19 Admission Dx/Problem (Free Text): Admission Diagnosis/Problem Admission Diagnosis/Problem Nausea and vomiting Subjective Update: Son has had 3 loose stools overnight. No more nausea or vomiting. Unfortunately he has had some increased wheezing and oxygen demand. He also had a significant episode of heart rate in the 30s. This occurred while he was sleeping. He did have a sinus pause. Nursing held his morning metoprolol. Functional Status: Reports: Pain Controlled - Review of Systems General: Reports: No Symptoms HEENT: Reports: No Symptoms Pulmonary: Reports: Shortness of Breath, Wheezing Cardiovascular: Reports: No Symptoms Musculoskeletal: Reports: No Symptoms Psychiatric: Reports: No Symptoms - Patient Data Vitals - Most Recent: Last Vital Signs Temp 97.7 F 04/20/19 21:56 Pulse 66 04/21/19 12:28 Resp 20 04/21/19 12:28 BP 122/58 L 04/21/19 12:28 Pulse Ox 84 L 04/21/19 12:52 Weight - Most Recent: 236 lb 14.4 oz I&O - Last 24 Hours: Intake & Output 04/20/19 04/21/19 04/21/19 22:59 06:59 14:59 Intake Total 100 1050 180 Output Total 200 400 Balance -100 650 180 Lab Results Last 24 Hours: Laboratory Results - last 24 hr 04/20/19 04/20/19 04/20/19 Range/Units 16:28 16:28 16:28 WBC 14.52 H (4.23-9.07) K/mm3 RBC 5.55 (4.63-6.08) M/mm3 Hgb 17.2 (13.7-17.5) gm/dl Hct 54.3 H (40.1-51.0) % MCV 97.8 H D (79.0-92.2) fl MCH 31.0 (25.7-32.2) pg MCHC 31.7 L (32.2-35.5) g/dl RDW Std Deviation 51.4 H (35.1-43.9) fL Plt Count 195 (163-337) K/mm3 MPV 11.5 (9.4-12.3) fl Neut % (Auto) (34.0-67.9) % Lymph % (Auto) (21.8-53.1) % [place] % (Auto) (5.3-12.2) % Eos % (Auto) (0.8-7.0) Baso % (Auto) (0.1-1.2) % Neut # (Auto) (1.78-5.38) K/mm3 Lymph # (Auto) (1.32-3.57) K/mm3 [place] # (Auto) (0.30-0.82) K/mm3 Eos # (Auto) (0.04-0.54) K/mm3 Baso # (Auto) (0.01-0.08) K/mm3 Neutrophils % (Manual) 92 H (40-60) % Band Neutrophils % 3 (0-10) % Lymphocytes % (Manual) 3 L (20-40) % Atypical Lymphs % 0 % Monocytes % (Manual) 2 (2-10) % Eosinophils % (Manual) 0 L (0.8-7.0) % Basophils % (Manual) 0 L (0.2-1.2) Manual Slide Review Platelet Estimate Adequate RBC Morph Comment Normal PT 26.6 H (9.7-12.0) SECONDS INR 2.57 APTT 36 H (22-31) SECONDS Puncture Site ABG pH (7.35-7.45) ABG pCO2 (35.0-45.0) mmHg ABG pO2 (80.0-100.0) mmHg ABG HCO3 (22.0-26.0) meq/L ABG O2 Saturation (96.0-97.0) % ABG Base Excess (-2-2.0) A-a Gradient mmHg O2 Delivery Device Oxygen Flow Rate FiO2 (21.00-100.00) % Sodium 136 (136-145) mEq/L Potassium 5.3 H (3.5-5.1) mEq/L Chloride 101 (98-107) mEq/L Carbon Dioxide 22 (21-32) mEq/L Anion Gap 18.3 H (5-15) BUN 24 H (7-18) mg/dL Creatinine 1.2 (0.7-1.3) mg/dL Est Cr Clr Drug Dosing TNP Estimated GFR (MDRD) 59 (>60) mL/min BUN/Creatinine Ratio 20.0 H (14-18) Glucose 154 H (83-115) mg/dL Lactic Acid (0.4-2.0) mmol/L Calcium 9.2 (8.5-10.1) mg/dL Magnesium 1.7 L (1.8-2.4) mg/dl Total Bilirubin 1.1 H (0.2-1.0) mg/dL AST 26 (15-37) U/L ALT 31 (16-63) U/L Alkaline Phosphatase 125 H (46-116) U/L CK-MB (CK-2) 2.2 (0-3.6) ng/ml Troponin I < 0.017 (0.00-0.056) ng/mL C-Reactive Protein 3.5 H* (<1.0) mg/dL Total Protein 8.4 H (6.4-8.2) g/dl Albumin 3.9 (3.4-5.0) g/dl Globulin 4.5 gm/dL Albumin/Globulin Ratio 0.9 L (1-2) Urine Color (Yellow) Urine Appearance (Clear) Urine pH (5.0-8.0) Ur Specific [place] (1.005-1.030) Urine Protein (Negative) Urine Glucose (UA) (Negative) Urine Ketones (Negative) Urine Occult Blood (Negative) Urine Nitrite (Negative) Urine Bilirubin (Negative) Urine Urobilinogen (0.2-1.0) Ur Leukocyte Esterase (Negative) U Hyaline Cast (Auto) (0-5) /lpf Urine RBC (0-5) /hpf Urine WBC (0-5) /hpf Ur Squamous Epith Cells (0-5) /hpf Urine Bacteria (FEW) /hpf Urine Mucus (FEW) /hpf Digoxin (0.9-2.0) ng/mL MRSA (PCR) 04/20/19 04/20/19 04/20/19 Range/Units 16:28 19:00 19:54 WBC (4.23-9.07) K/mm3 RBC (4.63-6.08) M/mm3 Hgb (13.7-17.5) gm/dl Hct (40.1-51.0) % MCV (79.0-92.2) fl MCH (25.7-32.2) pg MCHC (32.2-35.5) g/dl RDW Std Deviation (35.1-43.9) fL Plt Count (163-337) K/mm3 MPV (9.4-12.3) fl Neut % (Auto) (34.0-67.9) % Lymph % (Auto) (21.8-53.1) % [place] % (Auto) (5.3-12.2) % Eos % (Auto) (0.8-7.0) Baso % (Auto) (0.1-1.2) % Neut # (Auto) (1.78-5.38) K/mm3 Lymph # (Auto) (1.32-3.57) K/mm3 [place] # (Auto) (0.30-0.82) K/mm3 Eos # (Auto) (0.04-0.54) K/mm3 Baso # (Auto) (0.01-0.08) K/mm3 Neutrophils % (Manual) (40-60) % Band Neutrophils % (0-10) % Lymphocytes % (Manual) (20-40) % Atypical Lymphs % % Monocytes % (Manual) (2-10) % Eosinophils % (Manual) (0.8-7.0) % Basophils % (Manual) (0.2-1.2) Manual Slide Review Platelet Estimate RBC Morph Comment PT (9.7-12.0) SECONDS INR APTT (22-31) SECONDS Puncture Site Rt radial ABG pH 7.35 (7.35-7.45) ABG pCO2 37.8 (35.0-45.0) mmHg ABG pO2 73.0 L (80.0-100.0) mmHg ABG HCO3 20.5 L (22.0-26.0) meq/L ABG O2 Saturation 90.9 L (96.0-97.0) % ABG Base Excess -4.1 L (-2-2.0) A-a Gradient 80 mmHg O2 Delivery Device Nasal cannula Oxygen Flow Rate 2.0 FiO2 28.00 (21.00-100.00) % Sodium (136-145) mEq/L Potassium (3.5-5.1) mEq/L Chloride (98-107) mEq/L Carbon Dioxide (21-32) mEq/L Anion Gap (5-15) BUN (7-18) mg/dL Creatinine (0.7-1.3) mg/dL Est Cr Clr Drug Dosing Estimated GFR (MDRD) (>60) mL/min BUN/Creatinine Ratio (14-18) Glucose (83-115) mg/dL Lactic Acid 1.7 (0.4-2.0) mmol/L Calcium (8.5-10.1) mg/dL Magnesium (1.8-2.4) mg/dl Total Bilirubin (0.2-1.0) mg/dL AST (15-37) U/L ALT (16-63) U/L Alkaline Phosphatase (46-116) U/L CK-MB (CK-2) (0-3.6) ng/ml Troponin I (0.00-0.056) ng/mL C-Reactive Protein (<1.0) mg/dL Total Protein (6.4-8.2) g/dl Albumin (3.4-5.0) g/dl Globulin gm/dL Albumin/Globulin Ratio (1-2) Urine Color (Yellow) Urine Appearance (Clear) Urine pH (5.0-8.0) Ur Specific [place] (1.005-1.030) Urine Protein (Negative) Urine Glucose (UA) (Negative) Urine Ketones (Negative) Urine Occult Blood (Negative) Urine Nitrite (Negative) Urine Bilirubin (Negative) Urine Urobilinogen (0.2-1.0) Ur Leukocyte Esterase (Negative) U Hyaline Cast (Auto) (0-5) /lpf Urine RBC (0-5) /hpf Urine WBC (0-5) /hpf Ur Squamous Epith Cells (0-5) /hpf Urine Bacteria (FEW) /hpf Urine Mucus (FEW) /hpf Digoxin 1.2 (0.9-2.0) ng/mL MRSA (PCR) 04/20/19 04/21/19 04/21/19 Range/Units 21:28 02:40 05:43 WBC 10.32 H (4.23-9.07) K/mm3 RBC 4.48 L (4.63-6.08) M/mm3 Hgb 14.4 D (13.7-17.5) gm/dl Hct 44.2 (40.1-51.0) % MCV 98.7 H (79.0-92.2) fl MCH 32.1 (25.7-32.2) pg MCHC 32.6 (32.2-35.5) g/dl RDW Std Deviation 53.1 H (35.1-43.9) fL Plt Count 180 (163-337) K/mm3 MPV 11.8 (9.4-12.3) fl Neut % (Auto) 90.1 H (34.0-67.9) % Lymph % (Auto) 3.8 L (21.8-53.1) % [place] % (Auto) 5.6 (5.3-12.2) % Eos % (Auto) 0.1 L (0.8-7.0) Baso % (Auto) 0.2 (0.1-1.2) % Neut # (Auto) 9.30 H (1.78-5.38) K/mm3 Lymph # (Auto) 0.39 L (1.32-3.57) K/mm3 [place] # (Auto) 0.58 (0.30-0.82) K/mm3 Eos # (Auto) 0.01 L (0.04-0.54) K/mm3 Baso # (Auto) 0.02 (0.01-0.08) K/mm3 Neutrophils % (Manual) (40-60) % Band Neutrophils % (0-10) % Lymphocytes % (Manual) (20-40) % Atypical Lymphs % % Monocytes % (Manual) (2-10) % Eosinophils % (Manual) (0.8-7.0) % Basophils % (Manual) (0.2-1.2) Manual Slide Review Abnormal smear Platelet Estimate RBC Morph Comment PT (9.7-12.0) SECONDS INR APTT (22-31) SECONDS Puncture Site ABG pH (7.35-7.45) ABG pCO2 (35.0-45.0) mmHg ABG pO2 (80.0-100.0) mmHg ABG HCO3 (22.0-26.0) meq/L ABG O2 Saturation (96.0-97.0) % ABG Base Excess (-2-2.0) A-a Gradient mmHg O2 Delivery Device Oxygen Flow Rate FiO2 (21.00-100.00) % Sodium (136-145) mEq/L Potassium (3.5-5.1) mEq/L Chloride (98-107) mEq/L Carbon Dioxide (21-32) mEq/L Anion Gap (5-15) BUN (7-18) mg/dL Creatinine (0.7-1.3) mg/dL Est Cr Clr Drug Dosing Estimated GFR (MDRD) (>60) mL/min BUN/Creatinine Ratio (14-18) Glucose (83-115) mg/dL Lactic Acid (0.4-2.0) mmol/L Calcium (8.5-10.1) mg/dL Magnesium (1.8-2.4) mg/dl Total Bilirubin (0.2-1.0) mg/dL AST (15-37) U/L ALT (16-63) U/L Alkaline Phosphatase (46-116) U/L CK-MB (CK-2) (0-3.6) ng/ml Troponin I (0.00-0.056) ng/mL C-Reactive Protein (<1.0) mg/dL Total Protein (6.4-8.2) g/dl Albumin (3.4-5.0) g/dl Globulin gm/dL Albumin/Globulin Ratio (1-2) Urine Color [place] H (Yellow) Urine Appearance Clear (Clear) Urine pH 5.5 (5.0-8.0) Ur Specific [place] > or = 1.030 (1.005-1.030) Urine Protein 3+ H (Negative) Urine Glucose (UA) Negative (Negative) Urine Ketones Trace H (Negative) Urine Occult Blood Trace-lysed H (Negative) Urine Nitrite Negative (Negative) Urine Bilirubin 1+ H (Negative) Urine Urobilinogen 0.2 (0.2-1.0) Ur Leukocyte Esterase Negative (Negative) U Hyaline Cast (Auto) 5-10 H (0-5) /lpf Urine RBC 0-5 (0-5) /hpf Urine WBC 0-5 (0-5) /hpf Ur Squamous Epith Cells 0-5 (0-5) /hpf Urine Bacteria Few (FEW) /hpf Urine Mucus Many H (FEW) /hpf Digoxin (0.9-2.0) ng/mL MRSA (PCR) Negative 04/21/19 04/21/19 Range/Units 05:43 10:08 WBC (4.23-9.07) K/mm3 RBC (4.63-6.08) M/mm3 Hgb (13.7-17.5) gm/dl Hct (40.1-51.0) % MCV (79.0-92.2) fl MCH (25.7-32.2) pg MCHC (32.2-35.5) g/dl RDW Std Deviation (35.1-43.9) fL Plt Count (163-337) K/mm3 MPV (9.4-12.3) fl Neut % (Auto) (34.0-67.9) % Lymph % (Auto) (21.8-53.1) % [place] % (Auto) (5.3-12.2) % Eos % (Auto) (0.8-7.0) Baso % (Auto) (0.1-1.2) % Neut # (Auto) (1.78-5.38) K/mm3 Lymph # (Auto) (1.32-3.57) K/mm3 [place] # (Auto) (0.30-0.82) K/mm3 Eos # (Auto) (0.04-0.54) K/mm3 Baso # (Auto) (0.01-0.08) K/mm3 Neutrophils % (Manual) (40-60) % Band Neutrophils % (0-10) % Lymphocytes % (Manual) (20-40) % Atypical Lymphs % % Monocytes % (Manual) (2-10) % Eosinophils % (Manual) (0.8-7.0) % Basophils % (Manual) (0.2-1.2) Manual Slide Review Platelet Estimate RBC Morph Comment PT 19.5 H (9.7-12.0) SECONDS INR 1.85 APTT (22-31) SECONDS Puncture Site ABG pH (7.35-7.45) ABG pCO2 (35.0-45.0) mmHg ABG pO2 (80.0-100.0) mmHg ABG HCO3 (22.0-26.0) meq/L ABG O2 Saturation (96.0-97.0) % ABG Base Excess (-2-2.0) A-a Gradient mmHg O2 Delivery Device Oxygen Flow Rate FiO2 (21.00-100.00) % Sodium 136 (136-145) mEq/L Potassium 4.7 (3.5-5.1) mEq/L Chloride 103 (98-107) mEq/L Carbon Dioxide 23 (21-32) mEq/L Anion Gap 14.7 (5-15) BUN 27 H (7-18) mg/dL Creatinine 1.2 (0.7-1.3) mg/dL Est Cr Clr Drug Dosing 54.92 Estimated GFR (MDRD) 59 (>60) mL/min BUN/Creatinine Ratio 22.5 H (14-18) Glucose 130 H (83-115) mg/dL Lactic Acid (0.4-2.0) mmol/L Calcium 7.6 L D (8.5-10.1) mg/dL Magnesium 2.6 H (1.8-2.4) mg/dl Total Bilirubin 0.7 (0.2-1.0) mg/dL AST 22 (15-37) U/L ALT 22 (16-63) U/L Alkaline Phosphatase 85 (46-116) U/L CK-MB (CK-2) (0-3.6) ng/ml Troponin I (0.00-0.056) ng/mL C-Reactive Protein (<1.0) mg/dL Total Protein 6.4 (6.4-8.2) g/dl Albumin 2.8 L (3.4-5.0) g/dl Globulin 3.6 gm/dL Albumin/Globulin Ratio 0.8 L (1-2) Urine Color (Yellow) Urine Appearance (Clear) Urine pH (5.0-8.0) Ur Specific [place] (1.005-1.030) Urine Protein (Negative) Urine Glucose (UA) (Negative) Urine Ketones (Negative) Urine Occult Blood (Negative) Urine Nitrite (Negative) Urine Bilirubin (Negative) Urine Urobilinogen (0.2-1.0) Ur Leukocyte Esterase (Negative) U Hyaline Cast (Auto) (0-5) /lpf Urine RBC (0-5) /hpf Urine WBC (0-5) /hpf Ur Squamous Epith Cells (0-5) /hpf Urine Bacteria (FEW) /hpf Urine Mucus (FEW) /hpf Digoxin (0.9-2.0) ng/mL MRSA (PCR) Zaki Results Last 24 Hours: Microbiology 04/20/19 19:53 Influenza Type A Antigen Screen - Final Nasal Aspirate, Unspecified NEGATIVE INFLUENZA A VIRUS AG REFERENCE RANGE: NEGATIVE Influenza Type B Antigen Screen - Final NEGATIVE INFLUENZA B VIRUS AG REFERENCE RANGE: NEGATIVE Med Orders - Current: Current Medications Acetaminophen (Tylenol) 650 mg PO Q4H PRN PRN Reason: Pain (Mild 1-3)/fever Al Hydroxide/Mg Hydroxide (Mag-Al Plus) 30 ml PO Q4H PRN PRN Reason: Heartburn Last Admin: 04/21/19 00:35 Dose: 30 ml Albuterol (Proventil Neb Soln) 2.5 mg NEB Q2H PRN PRN Reason: Wheezing Albuterol/Ipratropium (Duoneb 3.0-0.5 Mg/3 Ml) 3 ml NEB Q6HRRT [facility] Ceftriaxone Sodium 2 gm/ (Sodium Chloride) 100 mls @ 200 mls/hr IV Q24H [facility] Last Admin: 04/20/19 20:47 Dose: 200 mls/hr Methylprednisolone Sodium Succinate (Solu-Medrol) 40 mg IVPUSH Q6H [facility] Metoprolol Tartrate (Lopressor) 100 mg PO BID [facility] Last Admin: 04/21/19 09:38 Dose: Not Given Non-Formulary Medication (Digoxin [Digoxin]) 0.25 mg PO DAILY [facility] Ondansetron HCl (Zofran) 4 mg IV Q4H PRN PRN Reason: Nausea/Vomiting Spironolactone (Aldactone) 25 mg PO BIDMEALS [facility] Last Admin: 04/21/19 12:00 Dose: 25 mg Warfarin Sodium (Pharmacy To Dose - Warfarin) 0 dose .XX ASDIRECTED PRN PRN Reason: RX TO DOSE COUMADIN Warfarin Sodium (Coumadin) 7.5 mg PO QPM [facility] Stop: 04/21/19 21:00 Discontinued Medications Acetaminophen (Tylenol) 650 mg PO ONETIME ONE Stop: 04/20/19 19:55 Last Admin: 04/20/19 20:00 Dose: 650 mg Acetaminophen (Tylenol) Confirm Administered Dose 325 mg .ROUTE .STK-MED ONE Stop: 04/20/19 20:04 Last Admin: 04/21/19 00:08 Dose: Not Given Albuterol/Ipratropium (Duoneb 3.0-0.5 Mg/3 Ml) 3 ml NEB Q6HRRT PRN PRN Reason: Shortness of Breath Dextrose/Sodium Chloride (Dextrose 5%-Normal Saline) 1,000 mls @ 125 mls/hr IV ASDIRECTED [facility] Last Admin: 04/20/19 18:34 Dose: 125 mls/hr Sodium Chloride (Normal Saline) 1,000 mls @ 999 mls/hr IV ASDIRECTED [facility] Last Admin: 04/20/19 21:40 Dose: 999 mls/hr Magnesium Sulfate 4 gm/ Premix 50 mls @ 12.5 mls/hr IV ONETIME ONE Stop: 04/21/19 02:00 Last Admin: 04/20/19 23:30 Dose: 12.5 mls/hr Lactated Ringer's (Ringers, Lactated) 500 mls @ 999 mls/hr IV .BOLUS ONE Stop: 04/21/19 01:30 Last Admin: 04/21/19 01:21 Dose: 999 mls/hr Dextrose/Lactated Ringer's (Dextrose 5%-Lactated Ringers) 1,000 mls @ 100 mls/ hr IV ASDIRECTED [facility] Last Admin: 04/21/19 04:31 Dose: 100 mls/hr Ondansetron HCl (Zofran) 4 mg IVPUSH ONETIME ONE Stop: 04/20/19 18:08 Last Admin: 04/20/19 18:34 Dose: 4 mg - Exam Quality Assessment: Supplemental Oxygen General: Alert, Oriented HEENT: Pupils Equal, Mucous Membr. Moist/[place] Neck: Supple Lungs: Wheezing. No: Normal Respiratory Effort (Increase in respiratory rate and effort) Cardiovascular: Regular Rate, Regular Rhythm GI/Abdominal Exam: Normal Bowel Sounds, Soft, Non-Tender, No Organomegaly, No Distention, No Abnormal Bruit Extremities: Normal Inspection, Pedal Edema Skin: Warm, Dry, Intact Psy/Mental Status: Alert, Normal Affect, Normal Mood Sepsis Event Note - Evaluation Sepsis Screening Result: No Definite Risk - Focused Exam Vital Signs: Vital Signs Pulse Resp BP Pulse Ox Pulse Ox 04/21/19 12:52 84 L 04/21/19 12:28 66 20 122/58 L 95 04/21/19 09:38 51 L 109/45 L 04/21/19 08:12 51 L 20 109/45 L 94 L Date Exam was Performed: 04/21/19 Time Exam was Performed: 14:56 - Problem List Review Problem List Initiated/Reviewed/Updated: Yes - My Orders Last 24 Hours: My Active Orders 04/20/19 21:57 Oxygen Therapy [RC] PRN Up With Assistance [RC] ASDIRECTED VTE/DVT Education [RC] PER UNIT ROUTINE Vital Signs [RC] Q4HR PT Evaluation and Treatment [CONS] Routine Acetaminophen [Tylenol] 650 mg PO Q4H PRN Ondansetron [Zofran] 4 mg IV Q4H PRN Resuscitation Status Routine 04/20/19 22:15 Pharmacy to Dose - Warfarin 0 dose .XX ASDIRECTED PRN 04/20/19 22:22 RT Aerosol Therapy [RC] ASDIRECTED 04/20/19 22:30 Metoprolol Tartrate [Lopressor] 100 mg PO BID 04/21/19 00:03 Alum Hydrox/Mag Hydrox/Simeth [Mag-Al Plus] 30 ml PO Q4H PRN 04/21/19 11:15 Digoxin [Digoxin] 0.25 mg PO DAILY Spironolactone [Aldactone] 25 mg PO BIDMEALS 04/21/19 13:00 Albuterol [Proventil Neb Soln] 2.5 mg NEB Q2H PRN methylPREDNISolone Sod Succ [Solu-MEDROL] 40 mg IVPUSH Q6H 04/21/19 13:02 RT Chest Physiotherapy [RC] ASDIRECTED RT Incentive Spirometry [RC] ASDIRECTED 04/21/19 13:06 Patient Status [ADT] Routine 04/21/19 15:00 Albuterol/Ipratropium [DuoNeb 3.0-0.5 MG/3 ML] 3 ml NEB Q6HRRT 04/21/19 18:00 Warfarin [Coumadin] 7.5 mg PO QPM 04/21/19 Breakfast Heart Healthy Diet [DIET] 04/22/19 05:11 INR,PT,PROTHROMBIN TIME [COAG] AM 04/22/19 09:00 Aspirin 81 mg PO DAILY 04/23/19 05:11 INR,PT,PROTHROMBIN TIME [COAG] AM 04/24/19 05:11 INR,PT,PROTHROMBIN TIME [COAG] AM 04/25/19 05:11 INR,PT,PROTHROMBIN TIME [COAG] AM 04/26/19 05:11 INR,PT,PROTHROMBIN TIME [COAG] AM - Plan Plan:: Assessment * Gastroenteritis * Multiple acute episodes of vomiting and diarrhea prior to admission * 3 episodes of diarrhea overnight * Hypovolemia -solved * Fluid resuscitation overnight * COPD exacerbation * Patient is significantly more wheezy this morning * Requiring O2 to keep oxygen saturations in the upper 80s to 90s. * Atrial fibrillation * Patient was found to be in RVR with rate up to 170 in the emergency room * Bradycardia, worsened during sleep off CPAP * On digoxin 0.25 mg daily and metoprolol 100 mg bid at home * Significant bradycardia this morning with rates in the 30s. Likely due to Not having CPAP and he is likely on too much metoprolol. * Anticoagulation with warfarin * INR 2.57 - 1.87 * Pharmacy to dose * Hypomagnesemia - resolved * Magnesium 1.7 -->2.6 * Hyperkalemia - resolved * Potassium 5.3 -->4.7 * Likely secondary to hypovolemia, losartan, and spironolactone * Hypertension * Home meds include: Metoprolol, losartan, spironolactone Plan * Changed to inpatient status on telemetry * Hold metoprolol for this morning and decrease dose to 50 mg bid * Advance diet as tolerated * Pharmacy to dose warfarin * Start Solu-Medrol 40 mg IV every 6 hours, DuoNeb scheduled every 6 hours, albuterol nebs every 2 hours as needed * Continue Rocephin 1 g daily * Recheck CBC, CMP, and magnesium in the morning * Zofran for nausea * Continue home inhalers * VTE prophylaxis with warfarin * CODE STATUS: Full code * Anticipated length of stay 2 to 3 days
[2019-04-21] MEDS: methylPREDNISolone Sodium Succinate 40 MG/1 ML SDV IVPUSH SCH ×2 (14:00→18:34)
[2019-04-21] MEDS: Albuterol/Ipratropium 3.0-0.5 MG/3 ML Neb Soln NEB SCH ×2 (15:08→20:48)
[2019-04-21] MEDS ORDERED: Warfarin 5 MG Tab PO SCH (18:00)
[2019-04-21] MEDS ORDERED: Warfarin 7.5 MG Tab PO SCH (18:00)
[2019-04-21] MEDS: cefTRIAXone 2 GM in Sodium Chloride 0.9% 100 ML IV SCH (21:10)
[2019-04-21] MEDS: Metoprolol Tartrate 50 MG Tab PO SCH (21:11)
[2019-04-22] MEDS: methylPREDNISolone Sodium Succinate 40 MG/1 ML SDV IVPUSH SCH ×4 (01:35→18:27)
[2019-04-22] MEDS: Albuterol/Ipratropium 3.0-0.5 MG/3 ML Neb Soln NEB SCH ×4 (02:57→22:25)
[2019-04-22] MEDS: Spironolactone 25 MG Tab PO SCH ×2 (06:19→16:24)
[2019-04-22] MEDS: Aspirin 81 MG Tab.EC PO SCH (08:01)
[2019-04-22] MEDS: Metoprolol Tartrate 50 MG Tab PO SCH ×2 (08:01→21:31)
[2019-04-22] MEDS ORDERED: Warfarin 5 MG Tab PO SCH (09:00)
[2019-04-22] MEDS: Digoxin 125 MCG Tab PO SCH (12:16)
--- NOTE | 2019-04-22 14:38 | PCM.PN ---
- General Info Date of Service: 04/22/19 Admission Dx/Problem (Free Text): Admission Diagnosis/Problem Admission Diagnosis/Problem Nausea and vomiting Subjective Update: Son continues to improve. He still requires 1 L nasal cannula. Denies shortness of breath. Functional Status: Reports: Pain Controlled - Review of Systems General: Reports: No Symptoms HEENT: Reports: No Symptoms Pulmonary: Reports: No Symptoms Cardiovascular: Reports: No Symptoms - Patient Data Vitals - Most Recent: Last Vital Signs Temp 97.5 F 04/22/19 12:15 Pulse 61 04/22/19 12:16 Resp 24 H 04/22/19 12:15 BP 125/57 L 04/22/19 12:15 Pulse Ox 93 L 04/22/19 12:16 Weight - Most Recent: 235 lb 1.6 oz I&O - Last 24 Hours: Intake & Output 04/21/19 04/22/19 04/22/19 22:59 06:59 14:59 Intake Total 1000 700 320 Output Total 450 1000 Balance 550 -300 320 Lab Results Last 24 Hours: Laboratory Results - last 24 hr 04/22/19 04/22/19 04/22/19 Range/Units 05:57 05:57 05:57 WBC 6.79 (4.23-9.07) K/mm3 RBC 4.45 L (4.63-6.08) M/mm3 Hgb 14.1 (13.7-17.5) gm/dl Hct 44.6 (40.1-51.0) % MCV 100.2 H (79.0-92.2) fl MCH 31.7 (25.7-32.2) pg MCHC 31.6 L (32.2-35.5) g/dl RDW Std Deviation 51.7 H (35.1-43.9) fL Plt Count 172 (163-337) K/mm3 MPV 10.8 (9.4-12.3) fl Neut % (Auto) 93.8 H (34.0-67.9) % Lymph % (Auto) 4.6 L (21.8-53.1) % [place] % (Auto) 1.5 L (5.3-12.2) % Eos % (Auto) 0 L (0.8-7.0) Baso % (Auto) 0.0 L (0.1-1.2) % Neut # (Auto) 6.37 H (1.78-5.38) K/mm3 Lymph # (Auto) 0.31 L (1.32-3.57) K/mm3 [place] # (Auto) 0.10 L (0.30-0.82) K/mm3 Eos # (Auto) 0.00 L (0.04-0.54) K/mm3 Baso # (Auto) 0.00 L (0.01-0.08) K/mm3 Manual Slide Review Abnormal smear PT 16.3 H (9.7-12.0) SECONDS INR 1.53 Sodium 135 L (136-145) mEq/L Potassium 5.0 (3.5-5.1) mEq/L Chloride 103 (98-107) mEq/L Carbon Dioxide 23 (21-32) mEq/L Anion Gap 14.0 (5-15) BUN 20 H (7-18) mg/dL Creatinine 1.1 (0.7-1.3) mg/dL Est Cr Clr Drug Dosing 59.91 mL/min Estimated GFR (MDRD) > 60 (>60) mL/min BUN/Creatinine Ratio 18.2 H (14-18) Glucose 166 H (83-115) mg/dL Calcium 8.0 L (8.5-10.1) mg/dL Magnesium 2.5 H (1.8-2.4) mg/dl Total Bilirubin 0.4 (0.2-1.0) mg/dL AST 23 (15-37) U/L ALT 23 (16-63) U/L Alkaline Phosphatase 85 (46-116) U/L Total Protein 7.0 (6.4-8.2) g/dl Albumin 3.0 L (3.4-5.0) g/dl Globulin 4.0 gm/dL Albumin/Globulin Ratio 0.8 L (1-2) Zaki Results Last 24 Hours: Microbiology 04/20/19 19:54 Aerobic Blood Culture - Preliminary Blood - Venous - Lab Draw NO GROWTH AFTER 1 DAY Anaerobic Blood Culture - Preliminary NO GROWTH AFTER 1 DAY 04/20/19 19:45 Aerobic Blood Culture - Preliminary Blood - Venous NO GROWTH AFTER 1 DAY Anaerobic Blood Culture - Preliminary NO GROWTH AFTER 1 DAY Med Orders - Current: Current Medications Acetaminophen (Tylenol) 650 mg PO Q4H PRN PRN Reason: Pain (Mild 1-3)/fever Al Hydroxide/Mg Hydroxide (Mag-Al Plus) 30 ml PO Q4H PRN PRN Reason: Heartburn Last Admin: 04/21/19 00:35 Dose: 30 ml Albuterol (Proventil Neb Soln) 2.5 mg NEB Q2H PRN PRN Reason: Wheezing Albuterol/Ipratropium (Duoneb 3.0-0.5 Mg/3 Ml) 3 ml NEB Q6HRRT [facility] Last Admin: 04/22/19 09:50 Dose: 3 ml Aspirin (Halfprin) 81 mg PO DAILY [facility] Last Admin: 04/22/19 08:01 Dose: 81 mg Digoxin (Lanoxin) 250 mcg PO DAILY@1200 [facility] Last Admin: 04/22/19 12:16 Dose: 250 mcg Ceftriaxone Sodium 2 gm/ (Sodium Chloride) 100 mls @ 200 mls/hr IV Q24H [facility] Last Admin: 04/21/19 21:10 Dose: 200 mls/hr Methylprednisolone Sodium Succinate (Solu-Medrol) 40 mg IVPUSH Q6H [facility] Last Admin: 04/22/19 12:18 Dose: 40 mg Metoprolol Tartrate (Lopressor) 50 mg PO Q12H [facility] Last Admin: 04/22/19 08:01 Dose: 50 mg Ondansetron HCl (Zofran) 4 mg IV Q4H PRN PRN Reason: Nausea/Vomiting Spironolactone (Aldactone) 25 mg PO BIDMEALS [facility] Last Admin: 04/22/19 06:19 Dose: 25 mg Warfarin Sodium (Pharmacy To Dose - Warfarin) 0 dose .XX ASDIRECTED PRN PRN Reason: RX TO DOSE COUMADIN Warfarin Sodium (Coumadin) 7.5 mg PO QPM [facility] Stop: 04/22/19 21:00 Discontinued Medications Acetaminophen (Tylenol) 650 mg PO ONETIME ONE Stop: 04/20/19 19:55 Last Admin: 04/20/19 20:00 Dose: 650 mg Acetaminophen (Tylenol) Confirm Administered Dose 325 mg .ROUTE .STK-MED ONE Stop: 04/20/19 20:04 Last Admin: 04/21/19 00:08 Dose: Not Given Albuterol/Ipratropium (Duoneb 3.0-0.5 Mg/3 Ml) 3 ml NEB Q6HRRT PRN PRN Reason: Shortness of Breath Dextrose/Sodium Chloride (Dextrose 5%-Normal Saline) 1,000 mls @ 125 mls/hr IV ASDIRECTED [facility] Last Admin: 04/20/19 18:34 Dose: 125 mls/hr Sodium Chloride (Normal Saline) 1,000 mls @ 999 mls/hr IV ASDIRECTED [facility] Last Admin: 04/20/19 21:40 Dose: 999 mls/hr Magnesium Sulfate 4 gm/ Premix 50 mls @ 12.5 mls/hr IV ONETIME ONE Stop: 04/21/19 02:00 Last Admin: 04/20/19 23:30 Dose: 12.5 mls/hr Lactated Ringer's (Ringers, Lactated) 500 mls @ 999 mls/hr IV .BOLUS ONE Stop: 04/21/19 01:30 Last Admin: 04/21/19 01:21 Dose: 999 mls/hr Dextrose/Lactated Ringer's (Dextrose 5%-Lactated Ringers) 1,000 mls @ 100 mls/ [facility] Last Admin: 04/21/19 04:31 Dose: 100 mls/hr Metoprolol Tartrate (Lopressor) 100 mg PO BID [facility] Last Admin: 04/21/19 09:38 Dose: Not Given Non-Formulary Medication (Digoxin [Digoxin]) 0.25 mg PO DAILY@1200 [facility] Last Admin: 04/21/19 15:26 Dose: Not Given Ondansetron HCl (Zofran) 4 mg IVPUSH ONETIME ONE Stop: 04/20/19 18:08 Last Admin: 04/20/19 18:34 Dose: 4 mg Warfarin Sodium (Coumadin) 7.5 mg PO QPM JODIE Stop: 04/21/19 21:00 Last Admin: 04/21/19 17:01 Dose: 7.5 mg - Exam Quality Assessment: Supplemental Oxygen General: Alert, Oriented HEENT: Pupils Equal, Mucous Membr. Moist/[place] Neck: Supple Lungs: Normal Respiratory Effort, Wheezing (Much improved) Cardiovascular: Regular Rate, Regular Rhythm GI/Abdominal Exam: Normal Bowel Sounds, Soft, Non-Tender, No Distention Extremities: Normal Inspection, Normal Range of Motion, Non-Tender, No Pedal Edema, Normal Capillary Refill Skin: Warm, Dry, Intact Psy/Mental Status: Alert, Normal Affect, Normal Mood Sepsis Event Note - Evaluation Sepsis Screening Result: No Definite Risk - Focused Exam Vital Signs: Vital Signs Temp Temp Pulse Resp BP BP Pulse Ox 04/22/19 12:16 61 93 L 04/22/19 12:15 97.5 F 109 H 24 H 125/57 L 89 L 04/22/19 10:54 79 95 04/22/19 10:42 65 92 L 04/22/19 10:39 87 88 L 04/22/19 09:51 04/22/19 08:01 63 111/58 L 04/22/19 07:56 97.3 F 63 14 111/58 L 95 04/22/19 06:23 71 97 04/22/19 03:50 97.3 F 13 118/64 95 04/22/19 02:57 Pulse Ox Pulse Ox 04/22/19 12:16 04/22/19 12:15 04/22/19 10:54 04/22/19 10:42 04/22/19 10:39 04/22/19 09:51 96 04/22/19 08:01 04/22/19 07:56 04/22/19 06:23 04/22/19 03:50 04/22/19 02:57 89 L Date Exam was Performed: 04/22/19 Time Exam was Performed: 14:28 - Problem List Review Problem List Initiated/Reviewed/Updated: Yes - My Orders Last 24 Hours: My Active Orders 04/21/19 14:25 Digoxin [Lanoxin] 250 mcg PO DAILY@1200 04/21/19 15:00 Albuterol/Ipratropium [DuoNeb 3.0-0.5 MG/3 ML] 3 ml NEB Q6HRRT 04/21/19 21:00 Metoprolol Tartrate [Lopressor] 50 mg PO Q12H 04/22/19 09:00 Aspirin [Halfprin] 81 mg PO DAILY 04/22/19 18:00 Warfarin [Coumadin] 7.5 mg PO QPM 04/23/19 05:11 CBC WITH AUTO DIFF [HEME] AM CMP [COMPREHENSIVE METABOLIC PN,CMP] [CHEM] AM INR,PT,PROTHROMBIN TIME [COAG] AM MAGNESIUM [CHEM] AM 04/24/19 05:11 CBC WITH AUTO DIFF [HEME] AM CMP [COMPREHENSIVE METABOLIC PN,CMP] [CHEM] AM INR,PT,PROTHROMBIN TIME [COAG] AM MAGNESIUM [CHEM] AM 04/25/19 05:11 INR,PT,PROTHROMBIN TIME [COAG] AM 04/26/19 05:11 INR,PT,PROTHROMBIN TIME [COAG] AM - Plan Plan:: Assessment * Gastroenteritis -resolved * Multiple acute episodes of vomiting and diarrhea prior to admission * 3 episodes of diarrhea yesterday * Zofran for nausea * Hypovolemia -resolved * Fluid resuscitation overnight * COPD exacerbation * Patient is significantly more wheezy this morning * Requiring O2 to keep oxygen saturations in the upper 80s to 90s. * Solu-Medrol 40 mg IV every 6 hours, DuoNeb scheduled every 6 hours, albuterol nebs every 2 hours as needed * Atrial fibrillation * Patient was found to be in RVR with rate up to 170 in the emergency room * Bradycardia first morning of admission, worsened during sleep off CPAP -now on home CPAP * On digoxin 0.25 mg daily and metoprolol 100 mg bid at home * Switched to metoprolol 50 mg twice daily * Anticoagulation with warfarin * INR 2.57 - 1.87-->1.5 * Pharmacy to dose * Hypomagnesemia - resolved * Magnesium 1.7 -->2.6-->2.5 * Hyperkalemia - resolved * Potassium 5.3 -->4.7-->5.0 * Likely secondary to hypovolemia, losartan, and spironolactone * Hypertension * Home meds include: Metoprolol, losartan, spironolactone Plan * Changed to inpatient status on telemetry * Hold metoprolol for this morning and decrease dose to 50 mg bid * Switch to Omnicef 300 mg twice daily * Recheck CBC, CMP, and magnesium in the morning * Duoneb q6h, Albuterol 2 h PRN * Plan discharge tomorrow. Goal is to be off supplemental oxygen. * VTE prophylaxis with warfarin * CODE STATUS: Full code * Anticipated length of stay 2 to 3 days
[2019-04-22] MEDS ORDERED: Warfarin 7.5 MG Tab PO SCH (18:00)
[2019-04-22] MEDS: Cefdinir 300 MG Cap PO SCH (21:31)
[2019-04-23] MEDS: methylPREDNISolone Sodium Succinate 40 MG/1 ML SDV IVPUSH SCH ×2 (01:32→06:01)
[2019-04-23] MEDS: Albuterol/Ipratropium 3.0-0.5 MG/3 ML Neb Soln NEB SCH ×2 (03:35→08:00)
[2019-04-23] MEDS: Spironolactone 25 MG Tab PO SCH (06:01)
[2019-04-23] MEDS: Metoprolol Tartrate 50 MG Tab PO SCH (08:41)
[2019-04-23] MEDS: Cefdinir 300 MG Cap PO SCH (08:41)
[2019-04-23] MEDS: Aspirin 81 MG Tab.EC PO SCH (08:43)
--- NOTE | 2019-04-23 11:19 | PCM.DCSUM1 ---
Discharge Summary - Hospital Course HPI Initial Comments: 74-year-old male with history of atrial fibrillation presents to the emergency department after having an acute episode of nausea, vomiting, and diarrhea occurring at approximately 1600 hrs. He states he had multiple episodes of diarrhea and a total of 3 episodes of vomiting. He states he has not had anything unusual to eat and had a sausage sandwich and some chips for lunch. He has not been eating out. They did state he has some shaking chills but no significant fever at home. When patient presented to the emergency room his oxygen saturation was 86% on room air with a respiratory rate of 32/min. Patient was placed on oxygen at 3 L/min. Patient also had bouts of atrial fibrillation with a ventricular rate of 170 bpm. There was no hematemesis, melena, or hematochezia. He did have food containing emesis with bile. does note that he has been trying to get home O2, but because he has a CPAP machine Medicare has not approved his oxygen. In the ED patient was given a bolus of IV fluid, started on D5 normal saline at 125 mL/h. Chest x-ray and abdominal films showed no significant acute findings. And his influenza was negative. Laboratory tests: WBC 14.52, hemoglobin 17.2, platelets 195, INR 2.57, APTT 36, sodium 136, potassium 5.3, chloride 101, carbon dioxide 22, anion gap 18.3, BUN 24, creatinine 1.2, glucose 154, C-reactive protein 3.5, magnesium 1.7, troponin less than 0.017, digoxin level 1.2, and lactic acid of 1.7. Diagnosis: Stroke: No - Discharge Data Discharge Date: 04/23/19 Discharge Disposition: Home, Self-Care 01 Condition: Good - Referral to Home Health Primary Care Physician: Sergio Gibbons MD - Patient Summary/Data Consults: Consultations 04/20/19 21:57 PT Evaluation and Treatment [CONS] Routine Hospital Course: Patient was admitted for gastroenteritis, hypovolemia with a COPD exacerbation. Gastroenteritis resolved over the first day and fluid resolved his hypovolemia overnight, but his O2 need continued throughout the hospitalization. He was treated with IV steroids, duo nebs, albuterol, and Omnicef. He was able to maintain oxygenation on 1 to 2 L and was sent home on 2 L of oxygen via nasal cannula. It appears that patient likely has a longstanding chronic hypoxemia secondary to his COPD, but this will need to be further evaluated by his primary care provider. Patient also has a history of atrial fibrillation and his INR was 1.97 at time of discharge. - Patient Instructions Diet: Usual Diet as Tolerated Activity: As Tolerated Driving: May Drive Today Notify Provider of: Fever (or shortness of breath) Other/Special Instructions: Follow up with PCP in 1 week. You will need to see a fluid power mechanic. Please make sure you keep/make and appointment. - Discharge Plan *PRESCRIPTION DRUG MONITORING PROGRAM REVIEWED*: Not Applicable *COPY OF PRESCRIPTION DRUG MONITORING REPORT IN PATIENT VIVIAN: Not Applicable Prescriptions/Med Rec: Cefdinir [Omnicef] 300 mg PO BID #6 cap Metoprolol Tartrate [Lopressor] 50 mg PO Q12H #60 tablet predniSONE [Prednisone] 50 mg PO DAILY #3 tablet Home Medications: Home Meds Aspirin 81 mg PO DAILY 12/03/15 [History] Digoxin 0.25 mg PO DAILY 12/03/15 [History] Metoprolol Tartrate [Lopressor] 100 mg PO BID 12/03/15 [History] Warfarin [Coumadin] 5 mg PO DAILY 12/03/15 [History] Albuterol [Proair HFA] 2 puff INH Q4HR PRN 12/10/15 [History] Tiotropium [Spiriva Handihaler] 1 puff INH DAILY PRN 12/10/15 [History] Spironolactone [Aldactone] 25 mg PO BID #20 tablet 10/15/18 [Rx] Losartan [Cozaar] 50 mg PO DAILY 12/25/18 [History] Fluticasone Propionate [Flovent] 1 spray PAM DAILY 04/21/19 [History] Cefdinir [Omnicef] 300 mg PO BID #6 cap 04/23/19 [Rx] Metoprolol Tartrate [Lopressor] 50 mg PO Q12H #60 tablet 04/23/19 [Rx] predniSONE [Prednisone] 50 mg PO DAILY #3 tablet 04/23/19 [Rx] Oxygen Therapy Mode: Nasal Cannula Oxygen Flow Rate (L/min): 2 Patient Handouts: Hypoxia, Home Oxygen Use, Adult Referrals: Sergio Gibbons MD [Primary Care Provider] - 04/30/19 1:30 pm (Please follow up with Dr. Gibbons on Tuesday, April 29 at 1:[address]. [address] Gibbons about a follow up for pulmonology.) - Discharge Summary/Plan Comment DC Time >30 min.: Yes Discharge Summary/Plan Comment: Discharge home in good condition. He was discharged with 2 L nasal cannula. Follow-up with primary care provider in a week. - General Info Date of Service: 04/23/19 Admission Dx/Problem (Free Text: Admission Diagnosis/Problem Admission Diagnosis/Problem Nausea and vomiting Subjective Update: Patient states he is feeling well. He has no more diarrhea, fatigue, or weakness. Mild cough. No shortness of breath. Functional Status: Reports: Pain Controlled - Review of Systems General: Reports: No Symptoms HEENT: Reports: No Symptoms Pulmonary: Reports: No Symptoms Cardiovascular: Reports: No Symptoms Gastrointestinal: Reports: No Symptoms Musculoskeletal: Reports: No Symptoms - Patient Data Vitals - Most Recent: Last Vital Signs Temp 97.5 F 04/23/19 08:39 Pulse 98 04/23/19 08:41 Resp 20 04/23/19 08:39 BP 144/61 H 04/23/19 08:41 Pulse Ox 94 L 04/23/19 10:50 Weight - Most Recent: 233 lb 11.2 oz I&O - Last 24 hours: Intake & Output 04/22/19 04/23/19 04/23/19 22:59 06:59 14:59 Intake Total 1750 400 180 Output Total 1700 Balance 1750 -1300 180 Lab Results - Last 24 hrs: Laboratory Results - last 24 hr 04/23/19 04/23/19 04/23/19 Range/Units 06:10 06:10 06:10 WBC 16.22 H (4.23-9.07) K/mm3 RBC 4.80 (4.63-6.08) M/mm3 Hgb 14.9 (13.7-17.5) gm/dl Hct 47.6 (40.1-51.0) % MCV 99.2 H (79.0-92.2) fl MCH 31.0 (25.7-32.2) pg MCHC 31.3 L (32.2-35.5) g/dl RDW Std Deviation 51.6 H (35.1-43.9) fL Plt Count 204 (163-337) K/mm3 MPV 11.4 (9.4-12.3) fl Neut % (Auto) 92.9 H (34.0-67.9) % Lymph % (Auto) 2.5 L (21.8-53.1) % [place] % (Auto) 4.4 L (5.3-12.2) % Eos % (Auto) 0 L (0.8-7.0) Baso % (Auto) 0.0 L (0.1-1.2) % Neut # (Auto) 15.08 H (1.78-5.38) K/mm3 Lymph # (Auto) 0.40 L (1.32-3.57) K/mm3 [place] # (Auto) 0.71 (0.30-0.82) K/mm3 Eos # (Auto) 0.00 L (0.04-0.54) K/mm3 Baso # (Auto) 0.00 L (0.01-0.08) K/mm3 Manual Slide Review Abnormal smear PT 20.7 H (9.7-12.0) SECONDS INR 1.97 Sodium 137 (136-145) mEq/L Potassium 4.5 (3.5-5.1) mEq/L Chloride 102 (98-107) mEq/L Carbon Dioxide 26 (21-32) mEq/L Anion Gap 13.5 (5-15) BUN 21 H (7-18) mg/dL Creatinine 1.3 (0.7-1.3) mg/dL Est Cr Clr Drug Dosing 50.69 mL/min Estimated GFR (MDRD) 54 (>60) mL/min BUN/Creatinine Ratio 16.2 (14-18) Glucose 146 H (83-115) mg/dL Calcium 8.5 (8.5-10.1) mg/dL Magnesium 2.3 (1.8-2.4) mg/dl Total Bilirubin 0.4 (0.2-1.0) mg/dL AST 26 (15-37) U/L ALT 28 (16-63) U/L Alkaline Phosphatase 81 (46-116) U/L Total Protein 7.4 (6.4-8.2) g/dl Albumin 3.4 (3.4-5.0) g/dl Globulin 4.0 gm/dL Albumin/Globulin Ratio 0.9 L (1-2) KJ Results - Last 24 hrs: Microbiology 04/20/19 19:54 Aerobic Blood Culture - Preliminary Blood - Venous - Lab Draw NO GROWTH AFTER 2 DAYS Anaerobic Blood Culture - Preliminary NO GROWTH AFTER 2 DAYS 04/20/19 19:45 Aerobic Blood Culture - Preliminary Blood - Venous NO GROWTH AFTER 2 DAYS Anaerobic Blood Culture - Preliminary NO GROWTH AFTER 2 DAYS Med Orders - Current: Current Medications Acetaminophen (Tylenol) 650 mg PO Q4H PRN PRN Reason: Pain (Mild 1-3)/fever Al Hydroxide/Mg Hydroxide (Mag-Al Plus) 30 ml PO Q4H PRN PRN Reason: Heartburn Last Admin: 04/21/19 00:35 Dose: 30 ml Albuterol (Proventil Neb Soln) 2.5 mg NEB Q2H PRN PRN Reason: Wheezing Albuterol/Ipratropium (Duoneb 3.0-0.5 Mg/3 Ml) 3 ml NEB Q6HRRT [facility] Last Admin: 04/23/19 08:00 Dose: 3 ml Aspirin (Halfprin) 81 mg PO DAILY [facility] Last Admin: 04/23/19 08:43 Dose: 81 mg Cefdinir (Omnicef) 300 mg PO BID [facility] Last Admin: 04/23/19 08:41 Dose: 300 mg Digoxin (Lanoxin) 250 mcg PO DAILY@1200 [facility] Last Admin: 04/22/19 12:16 Dose: 250 mcg Methylprednisolone Sodium Succinate (Solu-Medrol) 40 mg IVPUSH Q6H [facility] Last Admin: 04/23/19 06:01 Dose: 40 mg Metoprolol Tartrate (Lopressor) 50 mg PO Q12H [facility] Last Admin: 04/23/19 08:41 Dose: 50 mg Ondansetron HCl (Zofran) 4 mg IV Q4H PRN PRN Reason: Nausea/Vomiting Spironolactone (Aldactone) 25 mg PO BIDMEALS [facility] Last Admin: 04/23/19 06:01 Dose: 25 mg Warfarin Sodium (Pharmacy To Dose - Warfarin) 0 dose .XX ASDIRECTED PRN PRN Reason: RX TO DOSE COUMADIN Discontinued Medications Acetaminophen (Tylenol) 650 mg PO ONETIME ONE Stop: 04/20/19 19:55 Last Admin: 04/20/19 20:00 Dose: 650 mg Acetaminophen (Tylenol) Confirm Administered Dose 325 mg .ROUTE .STK-MED ONE Stop: 04/20/19 20:04 Last Admin: 04/21/19 00:08 Dose: Not Given Albuterol/Ipratropium (Duoneb 3.0-0.5 Mg/3 Ml) 3 ml NEB Q6HRRT PRN PRN Reason: Shortness of Breath Dextrose/Sodium Chloride (Dextrose 5%-Normal Saline) 1,000 mls @ 125 mls/hr IV ASDIRECTED [facility] Last Admin: 04/20/19 18:34 Dose: 125 mls/hr Sodium Chloride (Normal Saline) 1,000 mls @ 999 mls/hr IV ASDIRECTED [facility] Last Admin: 04/20/19 21:40 Dose: 999 mls/hr Ceftriaxone Sodium 2 gm/ (Sodium Chloride) 100 mls @ 200 mls/hr IV Q24H [facility] Last Admin: 04/21/19 21:10 Dose: 200 mls/hr Magnesium Sulfate 4 gm/ Premix 50 mls @ 12.5 mls/hr IV ONETIME ONE Stop: 04/21/19 02:00 Last Admin: 04/20/19 23:30 Dose: 12.5 mls/hr Lactated Ringer's (Ringers, Lactated) 500 mls @ 999 mls/hr IV .BOLUS ONE Stop: 04/21/19 01:30 Last Admin: 04/21/19 01:21 Dose: 999 mls/hr Dextrose/Lactated Ringer's (Dextrose 5%-Lactated Ringers) 1,000 mls @ 100 [facility] Admin: 04/21/19 04:31 Dose: 100 mls/hr Metoprolol Tartrate (Lopressor) 100 mg PO BID [facility] Last Admin: 04/21/19 09:38 Dose: Not Given Non-Formulary Medication (Digoxin [Digoxin]) 0.25 mg PO DAILY@1200 [facility] Last Admin: 04/21/19 15:26 Dose: Not Given Ondansetron HCl (Zofran) 4 mg IVPUSH ONETIME ONE Stop: 04/20/19 18:08 Last Admin: 04/20/19 18:34 Dose: 4 mg Warfarin Sodium (Coumadin) 7.5 mg PO QPM JODIE Stop: 04/21/19 21:00 Last Admin: 04/21/19 17:01 Dose: 7.5 mg Warfarin Sodium (Coumadin) 7.5 mg PO QPM JODIE Stop: 04/22/19 21:00 Last Admin: 04/22/19 17:32 Dose: 7.5 mg - Exam Quality Assessment: Reports: Supplemental Oxygen General: Reports: Alert, Oriented HEENT: Reports: Pupils Equal, Mucous Membr. Moist/[place] Neck: Reports: Supple Lungs: Reports: Clear to Auscultation, Normal Respiratory Effort Cardiovascular: Reports: Regular Rate, Regular Rhythm GI/Abdominal Exam: Normal Bowel Sounds, Soft, Non-Tender, No Organomegaly, No Distention, No Abnormal Bruit, No Mass, Pelvis Stable Back Exam: Reports: Normal Inspection, Full Range of Motion Extremities: Normal Inspection, Normal Range of Motion, Non-Tender, No Pedal Edema, Normal Capillary Refill Skin: Reports: Warm, Dry, Intact
[2019-04-23] MEDS: Digoxin 125 MCG Tab PO SCH (11:23)
[2019-04-23 13:25] VITALS: BP 166/70; PULSE 77
[2019-04-23] MEDS ORDERED: Warfarin 5 MG Tab PO SCH (18:00)
== END 2019-04-23 12:13 | disposition home or self-care (01) | DRG 392 ==
LOC: JD.ED 17:36 → INTOOBSV 20:11 → JD.MS 20:11 → OBSVTOIN 04-21 13:06
PROVIDERS: ADMIT Family Medicine; ATTEND Family Medicine
DX: K52.9 Noninfective gastroenteritis and colitis, unspecified (principal); I48.91 Unspecified atrial fibrillation; I48.20 Chronic atrial fibrillation, unspecified; I10 Essential (primary) hypertension; E66.9 Obesity, unspecified; R09.02 Hypoxemia; E83.42 Hypomagnesemia; E87.5 Hyperkalemia; E86.1 Hypovolemia; G47.30 Sleep apnea, unspecified; G47.33 Obstructive sleep apnea (adult) (pediatric); J43.1 Panlobular emphysema; Z88.0 Allergy status to penicillin; Z79.82 Long term (current) use of aspirin; Z79.01 Long term (current) use of anticoagulants; Z79.51 Long term (current) use of inhaled steroids; Z79.899 Other long term (current) drug therapy; Z87.891 Personal history of nicotine dependence; Z98.49 Cataract extraction status, unspecified eye; Z99.81 Dependence on supplemental oxygen; Z68.33 Body mass index [BMI] 33.0-33.9, adult
CPT/HCPCS: 36415 ×2; 36600; 71045; 74018; 80053 ×2; 80162; 81001; 82553; 82803; 83605; 83735 ×2; 84484; 85007; 85025; 85027; 85610 ×2; 85730; 86140; 87040 ×2; 87641; 87804 ×2; 93005; 96361; 96365; 96375; 97162; 99285; A9270 ×4; J0696; J2405; J3475; J7030; J7042; J7050; J7120; J7121; 93010; 94640; 94667; 94668; 94761; 96366; 96367; G0378; J2920; J7620-GY

== ENCOUNTER 2021-09-19 09:55 | Emergency (ER) | payer MEDICARE, BC ==
[2021-09-19] MEDS ORDERED: diphenhydrAMINE 50 MG/ML SDV IVPUSH PRN (12:42)
[2021-09-19] MEDS ORDERED: EPINEPHrine 1 MG/ML SDV IM PRN (12:42)
[2021-09-19] MEDS ORDERED: Famotidine 20 MG/2 ML SDV IVPUSH PRN (12:42)
[2021-09-19] MEDS ORDERED: methylPREDNISolone Sodium Succinate 125 MG/2 ML SDV IVPUSH PRN (12:42)
[2021-09-19] MEDS ORDERED: Sodium Chloride 0.9% 10 ML Syringe FLUSH SCH (12:45)
[2021-09-19 14:10] VITALS: BP 133/53; PULSE 49
== END 2021-09-19 14:07 | disposition home or self-care (01) ==
LOC: JD.ED 09:55
DX: U07.1 COVID-19 (principal); J44.9 Chronic obstructive pulmonary disease, unspecified; I10 Essential (primary) hypertension; E66.9 Obesity, unspecified; Z68.31 Body mass index [BMI] 31.0-31.9, adult; Z88.0 Allergy status to penicillin; Z79.82 Long term (current) use of aspirin; Z79.899 Other long term (current) drug therapy; Z79.01 Long term (current) use of anticoagulants
CPT/HCPCS: 36415; 80053; 83735; 83880; 84484; 85025; 93005; 99283; J3490; M0222; Q0222; U0002

== ENCOUNTER 2021-09-19 18:36 | Inpatient (IN) | payer MEDICARE, BC ==
[2021-09-19] MEDS ORDERED: Acetaminophen 325 MG Tab PO ONE (20:47)
[2021-09-19] MEDS ORDERED: cefTRIAXone 1 GM in Sodium Chloride 0.9% 100 ML IV ONE (21:29)
[2021-09-19] MEDS ORDERED: Furosemide 20 MG/2 ML VIAL IVPUSH ONE (21:31)
[2021-09-20 05:58] LABS: ESTIMATED GFR 52 mL/min (>60)
[2021-09-20] MEDS ORDERED: Albuterol 6.7 GM Inhaler INH PRN (06:48)
[2021-09-20] MEDS: Tiotropium Bromide 4 GM Inhalation Spray (2.5mcg/1 dose; 10 doses) INH PRN (08:42)
[2021-09-20] MEDS: Formoterol/Mometasone 100-5 MCG 8.8 GM Inhaler IH SCH (08:42)
[2021-09-20] MEDS: Losartan 50 MG Tab PO SCH (09:03)
[2021-09-20] MEDS: Aspirin 81 MG Tab.EC PO SCH (09:03)
[2021-09-20] MEDS: Metoprolol Tartrate 50 MG Tab PO SCH ×2 (09:04→20:30)
[2021-09-20] MEDS: Spironolactone 25 MG Tab PO SCH ×2 (09:04→17:25)
[2021-09-20] MEDS: Fluticasone NASAL Spray 16 GM Bottle NAS SCH (09:06)
[2021-09-20] MEDS ORDERED: REMDESIVIR 200 MG in Sodium Chloride 0.9% 250 ML IV ONE (11:00)
[2021-09-20] MEDS: Digoxin 250 MCG Tab PO SCH (11:34)
[2021-09-20] MEDS ORDERED: DIGOXIN PO SCH (12:00)
[2021-09-20] MEDS ORDERED: Dexamethasone 6 MG TABLET PO SCH (12:45)
[2021-09-20] MEDS ORDERED: Warfarin 5 MG Tab PO ONE (18:00)
[2021-09-20] MEDS ORDERED: Warfarin 7.5 MG Tab PO ONE (18:00)
[2021-09-20] MEDS ORDERED: Warfarin 5 MG Tab PO SCH (18:00)
[2021-09-21] MEDS: Spironolactone 25 MG Tab PO SCH ×3 (05:48→17:21)
[2021-09-21] MEDS: Formoterol/Mometasone 100-5 MCG 8.8 GM Inhaler IH SCH ×2 (08:29→20:35)
[2021-09-21] MEDS: Tiotropium Bromide 4 GM Inhalation Spray (2.5mcg/1 dose; 10 doses) INH PRN (08:29)
[2021-09-21] MEDS: Aspirin 81 MG Tab.EC PO SCH (09:14)
[2021-09-21] MEDS: Losartan 50 MG Tab PO SCH (09:14)
[2021-09-21] MEDS: Metoprolol Tartrate 50 MG Tab PO SCH ×2 (09:16→21:14)
[2021-09-21] MEDS: Fluticasone NASAL Spray 16 GM Bottle NAS SCH (09:16)
[2021-09-21] MEDS: Digoxin 250 MCG Tab PO SCH (09:16)
[2021-09-21] MEDS ORDERED: REMDESIVIR 100 MG in Sodium Chloride 0.9% 250 ML IV SCH (11:00)
[2021-09-21] MEDS ORDERED: Warfarin 7.5 MG Tab PO SCH (18:00)
[2021-09-22] MEDS: Spironolactone 25 MG Tab PO SCH (06:00)
[2021-09-22] MEDS: Aspirin 81 MG Tab.EC PO SCH (08:33)
[2021-09-22] MEDS: Digoxin 250 MCG Tab PO SCH (08:33)
[2021-09-22] MEDS: Losartan 50 MG Tab PO SCH (08:33)
[2021-09-22] MEDS: Metoprolol Tartrate 50 MG Tab PO SCH (08:36)
[2021-09-22] MEDS: Tiotropium Bromide 4 GM Inhalation Spray (2.5mcg/1 dose; 10 doses) INH PRN (08:46)
[2021-09-22] MEDS: Formoterol/Mometasone 100-5 MCG 8.8 GM Inhaler IH SCH (08:46)
[2021-09-22] MEDS: Fluticasone NASAL Spray 16 GM Bottle NAS SCH (09:00)
[2021-09-22 12:23] VITALS: BP 122/58; PULSE 54
[2021-09-22] MEDS ORDERED: Warfarin 5 MG Tab PO ONE (13:45)
[2021-09-22] MEDS ORDERED: Warfarin 5 MG Tab PO SCH (18:00)
== END 2021-09-22 14:34 | disposition home or self-care (01) | DRG 177 ==
LOC: JD.ED 18:36 → SUPCPDRO 18:36 → JD.MS 21:32
PROVIDERS: ADMIT Internal Medicine; ATTEND Internal Medicine
PROC: XW033E5 Introduction of Remdesivir Anti-infective into Peripheral Vein, Percutaneous Approach, New Technology Group 5 (ICD-10-PCS; principal; 2021-09-19)
PROC: 3E0DX3Z Introduction of Anti-inflammatory into Mouth and Pharynx, External Approach (ICD-10-PCS; 2021-09-19)
DX: U07.1 COVID-19 (principal); R09.02 Hypoxemia; J18.9 Pneumonia, unspecified organism; I10 Essential (primary) hypertension; J44.9 Chronic obstructive pulmonary disease, unspecified; J96.21 Acute and chronic respiratory failure with hypoxia; I48.91 Unspecified atrial fibrillation; I50.9 Heart failure, unspecified; I11.0 Hypertensive heart disease with heart failure; Z99.81 Dependence on supplemental oxygen; J43.1 Panlobular emphysema; G47.30 Sleep apnea, unspecified; E66.9 Obesity, unspecified; Z86.16 Personal history of COVID-19; Z86.19 Personal history of other infectious and parasitic diseases; Z79.899 Other long term (current) drug therapy; Z79.01 Long term (current) use of anticoagulants; Z88.0 Allergy status to penicillin; Z79.82 Long term (current) use of aspirin; Z98.49 Cataract extraction status, unspecified eye
CPT/HCPCS: 36600; 71045; 81001; 82803; 99285; A9270; 36415; 80053; 85025; 85027; 85610; 87040; 94640; 94660; 94667; 94668; 94762; 97110-GP; 97162-GP; 97166-GO; 99222; 99232; 99239; J0696; J1940; J7050; J8540

== ENCOUNTER 2022-07-17 06:47 | Emergency (ER) | payer MEDICARE, BC ==
[2022-07-17] MEDS ORDERED: Sodium Chloride 0.9% 10 ML Syringe FLUSH PRN (07:14)
[2022-07-17] MEDS ORDERED: Albuterol/Ipratropium 3.0-0.5 MG/3 ML Neb Soln NEB ONE (07:15)
[2022-07-17] MEDS ORDERED: methylPREDNISolone Sodium Succinate 125 MG/2 ML SDV IVPUSH ONE (07:15)
[2022-07-17 07:49] LABS: BASOPHILS ABSOLUTE AUTO 0.03 K/mm3 (0.01-0.08); BASOPHILS PERCENT AUTO 0.4 % (0.1-1.2); EOSINOPHILS ABSOLUTE AUTO 0.05 K/mm3 (0.04-0.54); EOSINOPHILS PERCENT AUTO 0.6 (0.8-7.0); HEMATOCRIT 40.3 % (40.1-51.0); HEMOGLOBIN 12.9 gm/dl (13.7-17.5); IMMATURE GRAN ABSOLUTE AUTO 0.01 K/mm3 (0.00-0.10); IMMATURE GRAN PERCENT AUTO 0.1 % (<=1.0); LYMPHOCYTES ABSOLUTE AUTO 0.47 K/mm3 (1.32-3.57); LYMPHOCYTES PERCENT AUTO 5.7 % (21.8-53.1); MEAN CORPUSCULAR HEMOGLOBIN 29.9 pg (25.7-32.2); MEAN CORPUSCULAR VOLUME 93.5 fl (79.0-92.2); MEAN PLATELET VOLUME 10.9 fl (9.4-12.3); MONOCYTES ABSOLUTE AUTO 1.16 K/mm3 (0.30-0.82); NEUTROPHILS ABSOLUTE AUTO 6.55 K/mm3 (1.78-5.38); NEUTROPHILS PERCENT AUTO 79.2 % (34.0-67.9); PLATELET COUNT,PLT 151 K/mm3 (163-337); RED BLOOD CELL COUNT 4.31 M/mm3 (4.63-6.08); WHITE BLOOD CELL COUNT,WBC 8.27 K/mm3 (4.23-9.07)
[2022-07-17 08:24] LABS: A/G RATIO 0.7 (1-2); ALANINE AMINOTRANSFERASE,ALT 31 U/L (16-63); ALBUMIN 3.5 g/dl (3.4-5.0); ALKALINE PHOSPHATASE 95 U/L (46-116); ASPARTATE AMNIOTRANSFERASE,AST 26 U/L (15-37); BILIRUBIN TOTAL 0.8 mg/dL (0.2-1.0); BLOOD UREA NITROGEN,BUN 25 mg/dL (7-18); BUN/CREATININE RATIO 16.7 (14-18); CALCIUM 8.1 mg/dL (8.5-10.1); CARBON DIOXIDE,CO2 26 mEq/L (21-32); CHLORIDE,CL 99 mEq/L (98-107); CREATININE 1.5 mg/dL (0.7-1.3); ESTIMATED GFR 47 mL/min (>60); GLUCOSE RANDOM 126 mg/dL (70-99); PROTEIN TOTAL,TP 8.5 g/dl (6.4-8.2); SODIUM,NA 132 mEq/L (136-145)
[2022-07-17 09:09] LABS: CORONAVIRUS COVID-19 NAA NEGATIVE (NEGATIVE); INFLUENZA A NAA NEGATIVE (NEGATIVE); RESPIRATORY SYNCYTIAL VIR NAA NEGATIVE (NEGATIVE)
[2022-07-17 10:48] VITALS: BP 135/59; PULSE 93
== END 2022-07-17 10:03 | disposition home or self-care (01) ==
LOC: JD.ED 06:47
DX: J44.1 Chronic obstructive pulmonary disease with (acute) exacerbation (principal); I10 Essential (primary) hypertension; E78.00 Pure hypercholesterolemia, unspecified; M19.90 Unspecified osteoarthritis, unspecified site; E66.9 Obesity, unspecified; Z86.16 Personal history of COVID-19; Z87.891 Personal history of nicotine dependence; Z88.0 Allergy status to penicillin; Z79.82 Long term (current) use of aspirin; Z79.899 Other long term (current) drug therapy; Z79.01 Long term (current) use of anticoagulants; Z20.822 Contact with and (suspected) exposure to COVID-19
CPT/HCPCS: 0241U; 36415; 71045; 80053; 83880; 85025; 94640; 96374; 99285; J2930; J3490; J7620-GY

== ENCOUNTER 2023-04-05 08:19 | Emergency (ER) | payer MEDICARE, BC ==
[2023-04-05] MEDS: Oxymetazoline 0.05% Nasal Spray 30 ML Bottle NAS ONE (08:44)
[2023-04-05 09:16] LABS: BASOPHILS PERCENT AUTO 0.3 % (0.0-1.0); EOSINOPHILS ABSOLUTE AUTO 0.1 K/mm3 (0.0-0.4); EOSINOPHILS PERCENT AUTO 1.1 % (0.0-6.0); HEMATOCRIT 38.1 % (42.0-52.0); HEMOGLOBIN 12.9 gm/dl (14.0-18.0); IMMATURE GRAN ABSOLUTE AUTO 0.03 K/mm3 (0.00-0.05); IMMATURE GRAN PERCENT AUTO 0.3 % (0.0-0.4); LYMPHOCYTES ABSOLUTE AUTO 0.6 K/mm3 (1.0-4.8); LYMPHOCYTES PERCENT AUTO 5.8 % (24.0-44.0); MEAN CORPUSCULAR HEMOGLOBIN 30.6 pg (28.0-32.0); MEAN CORPUSCULAR HGB CONC 33.9 g/dl (32.0-36.0); MEAN CORPUSCULAR VOLUME 90.5 fl (83.0-99.0); MONOCYTES PERCENT AUTO 9.8 % (0.0-8.0); NEUTROPHILS ABSOLUTE AUTO 8.7 K/mm3 (1.8-7.7); NEUTROPHILS PERCENT AUTO 82.7 % (41.0-71.0); PLATELET COUNT,PLT 188 K/mm3 (150-400); RED BLOOD CELL COUNT 4.21 M/mm3 (4.52-5.90); WHITE BLOOD CELL COUNT,WBC 10.51 K/mm3 (3.9-11.3)
[2023-04-05 09:32] LABS: INR 2.22; PROTHROMBIN TIME 22.4 SECONDS (9.7-12.0)
[2023-04-05 18:46] VITALS: BP 142/59; PULSE 72
== END 2023-04-05 09:55 | disposition home or self-care (01) ==
LOC: JD.ED 08:19
DX: R04.0 Epistaxis (principal); I48.91 Unspecified atrial fibrillation; I10 Essential (primary) hypertension; J44.9 Chronic obstructive pulmonary disease, unspecified; E66.9 Obesity, unspecified; Z68.34 Body mass index [BMI] 34.0-34.9, adult; Z88.0 Allergy status to penicillin; Z79.82 Long term (current) use of aspirin; Z79.01 Long term (current) use of anticoagulants; Z86.16 Personal history of COVID-19; Z79.51 Long term (current) use of inhaled steroids; Z79.899 Other long term (current) drug therapy
CPT/HCPCS: 30901; 36415; 85025; 85610; 99283; A9270